=== PATIENT | female | born 1970 | race Caucasian/White ===

== ENCOUNTER 2017-05-05 12:57 | Emergency (ER) | payer MEDICARE, SELFPAY ==
[2017-05-05 12:58] VITALS: BP 120/83; PULSE 104; RESP 16; TEMP 37.3; O2SAT 97; BMI 26.7
--- NOTE | 2017-05-05 13:06 | CT_ITS ---
STUDY: CT BRAIN WITHOUT CONTRAST REASON FOR EXAM: Female, 46 years old. History of seizure. RADIATION DOSAGE (If Supplied By Facility): CTDIvol = ( 44.99 ) mGy, DLP = ( 779.24 ) mGycm TECHNIQUE: Transaxial CT imaging of the brain was performed without administration of intravenous contrast material. Individualized dose optimization techniques were used for this CT. COMPARISON: None. FINDINGS: Normal soft tissue structures. Normal calvarium. Normal size ventricles and extra-axial spaces for the patient's age. Normal white matter tracts of the cerebral hemispheres. Normal basal ganglia and thalami. Normal brainstem. Normal cerebellum. There is no intracranial hemorrhage. There are no findings of an acute ischemic infarction. Partial opacification of the ethmoid sinuses bilaterally. CT/Brain/Head without Contrast IMPRESSION: Normal unenhanced CT scan of the brain. Partial opacification of the ethmoid sinuses bilaterally. Electronically Signed: Marcelo Montez MD at 14:50 EST Tel [phone], Service support ,
--- NOTE | 2017-05-05 13:06 | EKG12_ITS ---
Test Reason : SEIZURE Blood Pressure : / mmHG Vent. Rate : 107 BPM Atrial Rate : 107 BPM P-R Int : 150 ms QRS Dur : 080 ms QT Int : 360 ms P-R-T Axes : 039 051 038 degrees QTc Int : 480 ms Sinus tachycardia Low voltage QRS Borderline ECG Confirmed by ASHWIN COLON MD ([id number]), video tape editor REÉN MCCORD ([id number] on 05/08/2017 2:52:52 PM Referred By: VINITA Confirmed By:ASHWIN COLON MD
--- NOTE | 2017-05-05 13:09 | ED.RN ---
PT ARRIVES TO ED CONFUSED AND DISORIENTED. CHART COMPLETE THAT COULD BE DONE WITHOUT PT HISTORIAN.
--- NOTE | 2017-05-05 13:15 | RAD_ITS ---
STUDY: X-RAY CHEST REASON FOR EXAM: Female, 46 years old. Shortness of breath/dyspnea. TECHNIQUE: Single AP portable view of the chest. COMPARISON: None. FINDINGS: Mild elevation of the right hemidiaphragm. There is no demonstrated pleural abnormality. Normal size heart. Normal mediastinum and sukhi. Normal visualized pulmonary arteries. Normal visualized aortic arch and descending thoracic aorta. Normal visualized thoracic spine. Normal visualized ribs, clavicles, and shoulders. There is no demonstrated abnormality of the visualized soft tissue structures of the upper abdomen. RAD/Chest 1 View (Portable) IMPRESSION: Normal x-ray examination of the chest. Electronically Signed: Marcelo Montez MD at 13:37 EST Tel [phone], Service support ,
--- NOTE | 2017-05-05 13:27 | NURSING ---
NO OLD EKGS
--- NOTE | 2017-05-05 13:43 | ED.RN ---
Sudha [facility] [phone]. Member of the [employer]az[employer] that is caring for the patient.
--- NOTE | 2017-05-05 13:49 | ED.VISSUMM ---
- ER Visit Summary Date of Service: 05/05/17 Chief Complaint: [] Seizure while playing in scientology History of Present Illness: The patient is a 46 F [] the patient is currently staying in a scientology related to homelessness prior history for polysubstance abuse and alcohol abuse, history of seizure disorder and anxiety, on Klonopin for those conditions, she indicates she has a reaction to seizure medication such as Depakote and Keppra so her seizures are managed using Klonopin which she gets a physician in [place] she has been in the [place] area since December and this physician's office apparently sensory to the prescription or the medication Her usual state of normal health until she bent down to pray as she did those next her noticed she began having generalized clonic tonic clonic activity lasted for 3 minutes she is brought to the emergency department Has not been ill in any way she has had no head trauma no fever no cough no chest or abdominal pain right now she is awake alert answering questions complaining of generalized fatigue She is not abusing any medications or drugs she has no specific complaints and she states she has been taking the Klonopin has not missed any doses Physical Examination: [] She is awake looking about she is oriented to herself the [facility] her nose and throat are unremarkable her neck is supple her lungs are clear heart tones unremarkable abdomen soft nontender she is moving all 4 complains of generalized fatigue Test Results: [] Emergency Department Course and Treatment: [] Had difficulty obtaining IV access related to prior history of IV drug abuse will try to obtain screening labs head CT and observe her, the scientology members who she is living with state absolutely definitively that she was not ill she has not been using drugs and this all started suddenly today And her friends report that in fact for the last 2 days she has had almost no sleep and this certainly could have contributed to her seizure active sleep apparently is related to general anxiety concern about her status We could not obtain IV access, the patient refused a femoral stick screening CT showed nothing acute questionable ethmoid sinusitis, chest x-ray unremarkable she is awake and alert she is walking around the emergency room to the bathroom she feels well for discharged, has no complaints understands need to follow-up as she may require other definitive management for her seizure condition, she indicates she has her Klonopin at home with her she will continue that for seizures in addition she will be referred to Dr. Kearns of neurology and return for change in symptoms not Prone to sinusitis she reports she is occasionally blowing her nose given that complaint in the CT finding we will start her on amoxicillin, Mucinex, Flonase inhaler and she will follow-up for all the above Treatment Plan: [] Disposition: [] Home stable Impression: [] seizure disorder, seizure, possible sinusitis This note was generated with [employer] dictation software. It may contain incorrect words, spelling, and punctuation that were not noted in review of the chart prior to signing ED Disposition - Plan for ED Patient: Chief Complaint: Seizure Instructions: ED Seizure Recurrent Referrals: Ambrose Kearns MD [STAFF PHYSICIAN] - [facility] Doctor,Out of [NON-STAFF] - [facility] [NON-STAFF] -
--- NOTE | 2017-05-05 13:52 | ED.DCSUM_ITS ---
- ER Visit Summary Date of Service: 05/05/17 Chief Complaint: [] Seizure while playing in latter-day History of Present Illness: The patient is a 46 F [] the patient is currently staying in a latter-day related to homelessness prior history for polysubstance abuse and alcohol abuse, history of seizure disorder and anxiety, on Klonopin for those conditions, she indicates she has a reaction to seizure medication such as Depakote and Keppra so her seizures are managed using Klonopin which she gets a physician in [place] she has been in the [place] area since December and this physician's office apparently sensory to the prescription or the medication Her usual state of normal health until she bent down to pray as she did those next her noticed she began having generalized clonic tonic clonic activity lasted for 3 minutes she is brought to the emergency department Has not been ill in any way she has had no head trauma no fever no cough no chest or abdominal pain right now she is awake alert answering questions complaining of generalized fatigue She is not abusing any medications or drugs she has no specific complaints and she states she has been taking the Klonopin has not missed any doses Physical Examination: [] She is awake looking about she is oriented to herself the [facility] her nose and throat are unremarkable her neck is supple her lungs are clear heart tones unremarkable abdomen soft nontender she is moving all 4 complains of generalized fatigue Test Results: [] Emergency Department Course and Treatment: [] Had difficulty obtaining IV access related to prior history of IV drug abuse will try to obtain screening labs head CT and observe her, the latter-day members who she is living with state absolutely definitively that she was not ill she has not been using drugs and this all started suddenly today And her friends report that in fact for the last 2 days she has had almost no sleep and this certainly could have contributed to her seizure active sleep apparently is related to general anxiety concern about her status We could not obtain IV access, the patient refused a femoral stick screening CT showed nothing acute questionable ethmoid sinusitis, chest x-ray unremarkable she is awake and alert she is walking around the emergency room to the bathroom she feels well for discharged, has no complaints understands need to follow-up as she may require other definitive management for her seizure condition, she indicates she has her Klonopin at home with her she will continue that for seizures in addition she will be referred to Dr. Kearns of neurology and return for change in symptoms not Prone to sinusitis she reports she is occasionally blowing her nose given that complaint in the CT finding we will start her on amoxicillin, Mucinex, Flonase inhaler and she will follow-up for all the above Treatment Plan: [] Disposition: [] Home stable Impression: [] seizure disorder, seizure, possible sinusitis This note was generated with [employer] dictation software. It may contain incorrect words, spelling, and punctuation that were not noted in review of the chart prior to signing ED Disposition - Plan for ED Patient: Chief Complaint: Seizure Instructions: ED Seizure Recurrent Referrals: Ambrose Kearns MD [STAFF PHYSICIAN] - [facility] Doctor,Out of [NON-STAFF] - [facility] K[facility] [NON-STAFF] -
--- NOTE | 2017-05-05 14:39 | NURSING ---
PER LAB, NEED ANOTHER CBC, TOO SHORT
[2017-05-05 15:02] LABS: Mucous, Urine 0 SEEN /hpf (<or=2+); Red Blood Cells-Urine 0 SEEN /hpf (0-5); White Blood Cells 0 SEEN /hpf (0-5)
[2017-05-05 15:06] LABS: Color, Urine Yellow (Yellow); Glucose, Dipstick Normal (Normal); Ketone-Dipstick 15 mg/dl (Negative); Leukocyte Esterase-Dipstick Negative /ul (Negative); Nitrite-Dipstick Negative (Negative); Occult Blood-Urine Negative /ul (Negative); Protein-Dipstick Negative (Negative); Specific Gravity, Urine 1.015 (1.002-1.030); Urine Bilirubin Dipstick Negative (Negative); Urine Clarity Clear (Clear); Urine Urobilinogen Normal (Normal)
[2017-05-05 15:13] LABS: Bacteria RARE /hpf (None Seen); Squamous Epithelial Cells - UA 0-5 SEEN /hpf (5-10)
[2017-05-05 15:29] VITALS: PULSE 102; RESP 16; O2SAT 98
[2017-05-05] MEDS: LORazepam 1 MG Tablet PO (15:58)
--- NOTE | 2017-05-05 15:58 | DCINST.ED_ITS ---
ED Disposition - Plan for ED Patient: Chief Complaint: Seizure Instructions: ED Seizure Recurrent Referrals: [facility] Doctor,Out of [NON-STAFF] - [facility]Jaci Kraft [NON-STAFF] - Ambrose Kearns MD [STAFF PHYSICIAN] -
--- NOTE | 2017-05-05 16:06 | ED.DEP ---
ED Disposition - Plan for ED Patient: Chief Complaint: Seizure Instructions: ED Seizure Recurrent Prescriptions: Azithromycin [Zithromax Z-August] 250 mg PO UD #1 box Fluticasone Propionate [Flonase Allergy Relief] 9.9 ml NS BID #1 spray.susp Guaifenesin [Mucinex] 1,200 mg PO BID #14 tbmp.12hr Referrals: Ambrose Kearns MD [STAFF PHYSICIAN] - [facility] Doctor,Out of [NON-STAFF] - [facility]i K[facility] [NON-STAFF] -
--- NOTE | 2017-05-05 16:11 | DCINST.ED_ITS ---
ED Disposition - Plan for ED Patient: Chief Complaint: Seizure Instructions: ED Seizure Recurrent Prescriptions: Azithromycin [Zithromax Z-August] 250 mg PO UD #1 box Fluticasone Propionate [Flonase Allergy Relief] 9.9 ml NS BID #1 spray.susp Guaifenesin [Mucinex] 1,200 mg PO BID #14 tbmp.12hr Referrals: Ambrose Kearns MD [STAFF PHYSICIAN] - [facility] Doctor,Out of [NON-STAFF] - [facility]Jaci Kraft [NON-STAFF] -
--- NOTE | 2017-05-05 16:13 | DCINST.ED_ITS ---
ED Disposition - Plan for ED Patient: Chief Complaint: Seizure Instructions: ED Seizure Recurrent, ED Sinusitis Abx Tx Prescriptions: Azithromycin [Zithromax Z-August] 250 mg PO UD #1 box Fluticasone Propionate [Flonase Allergy Relief] 9.9 ml NS BID #1 spray.susp Guaifenesin [Mucinex] 1,200 mg PO BID #14 tbmp.12hr Referrals: Ambrose Kearns MD [STAFF PHYSICIAN] - [facility] Doctor,Out of [NON-STAFF] - [facility]Jaci Kraft [NON-STAFF] -
--- NOTE | 2017-05-06 11:07 | ED.DEP ---
ED Disposition - Plan for ED Patient: Disposition: Home or Assisted Living Chief Complaint: Seizure Instructions: ED Sinusitis Abx Tx, ED Seizure Recurrent Prescriptions: Azithromycin [Zithromax] 250 mg PO DAILY #6 tab Fluticasone Propionate [Flonase Allergy Relief] 9.9 ml NS BID #1 spray.susp Guaifenesin [Mucinex] 1,200 mg PO BID #14 tbmp.12hr Referrals: Ambrose Kearns MD [STAFF PHYSICIAN] - [facility] Doctor,Out of [NON-STAFF] - [facility] K[facility] [NON-STAFF] -
--- NOTE | 2017-05-06 11:10 | DCINST.ED_ITS ---
ED Disposition - Plan for ED Patient: Disposition: Home or Assisted Living Chief Complaint: Seizure Instructions: ED Sinusitis Abx Tx, ED Seizure Recurrent Prescriptions: Azithromycin [Zithromax] 250 mg PO DAILY #6 tab Fluticasone Propionate [Flonase Allergy Relief] 9.9 ml NS BID #1 spray.susp Guaifenesin [Mucinex] 1,200 mg PO BID #14 tbmp.12hr Referrals: Ambrose Kearns MD [STAFF PHYSICIAN] - [facility] Doctor,Out of [NON-STAFF] - [facility] K[facility] [NON-STAFF] -
== END 2017-05-05 16:23 | disposition home or self-care (01) ==
PROVIDERS: Emergency Provider Emergency Medicine
DX: G40.909 Epilepsy, unspecified, not intractable, without status epilepticus (principal); Z59.0 Homelessness; F41.9 Anxiety disorder, unspecified
CPT/HCPCS: 70450; 71045; 81001; 93005; 99284; J7030; A4216

== ENCOUNTER 2017-05-06 14:15 | Emergency (ER) | payer MEDICARE, MEDICAID, SELFPAY ==
[2017-05-06 14:16] VITALS: BP 139/83; PULSE 75; RESP 16; TEMP 36.3; O2SAT 100; BMI 26.9
--- NOTE | 2017-05-06 15:05 | RAD_ITS ---
STUDY: X-RAY CHEST REASON FOR EXAM: Female, 46 years old. History of seizures. TECHNIQUE: Single AP portable view of the chest. COMPARISON: None. FINDINGS: EKG electrodes are seen. Mild increased linear markings at the left lung base suggestive of likely atelectasis and/or possible scarring. There is no demonstrated pleural abnormality. Normal size heart. Normal mediastinum and sukhi. Normal visualized pulmonary arteries. Normal visualized aortic arch and descending thoracic aorta. Normal visualized thoracic spine. Normal visualized ribs, clavicles, and shoulders. There is no demonstrated abnormality of the visualized soft tissue structures of the upper abdomen. RAD/Chest 1 View (Portable) IMPRESSION: Mild increased linear markings at the left lung base suggestive of left basilar atelectasis and/or scarring. Electronically Signed: Marcelo Montez MD at 15:33 EST Tel [phone], Service support ,
--- NOTE | 2017-05-06 15:05 | EKG12_ITS ---
Test Reason : SEIZURES Blood Pressure : / mmHG Vent. Rate : 072 BPM Atrial Rate : 072 BPM P-R Int : 148 ms QRS Dur : 084 ms QT Int : 388 ms P-R-T Axes : 039 007 028 degrees QTc Int : 424 ms Normal sinus rhythm Normal ECG Confirmed by ASHWIN COLON MD ([id number]), editor index RENÉ MCCORD ([id number]) on 05/11/2017 2:12:23 PM Referred By: ELVA Confirmed By:ASHWIN COLON MD
[2017-05-06 15:25] LABS: Absolute Lymphocyte Count 2.04 X10^3/ul (0.83-4.51); Absolute Neutrophil Count 5.5 X10^3/uL (2.0-7.7); Basophil# 0.04 X10^3/uL; Basophil% 0.5 % (0-1); Eosinophil# 0.21 X10^3/uL; Eosinophils% 2.5 % (0-5); Hematocrit 40.3 % (37-47); Hemoglobin 13.3 g/dl (12.0-15.0); Lymphocyte # 2.04 X10^3/ul (4.0); Lymphocyte % 24.4 % (19-41); Mean Corpuscular Hgb 31.1 pg (27.0-32.0); Mean Corpuscular Volume 94.4 fL (81-99); Mean Platelet Vol. 9.6 fl (6.2-12.0); Monocyte# 0.58 X10^3/uL; Monocyte% 6.9 % (0-10); Neutrophil # 5.46 X10^3/uL (2.7-7.7); Neutrophil % 65.5 % (47-70); Platelet Count 446 K/mm3 (150-450); RBC Distribution Width CV 12.6 % (11.6-14.6); RBC Distribution Width SD 42.4 fl (35.1-43.9); Red Blood Count 4.27 M/mm3 (4.2-5.4); White Blood Count 8.4 K/mm3 (4.4-11.0)
[2017-05-06 15:30] LABS: AST(SGOT) 15 U/L (15-37); Alanine Aminotransfer ALT/SGPT 20 U/L (13-56); Albumin, Serum 3.8 g/dL (3.2-5.0); Alkaline Phosphatase 93 U/L (45-117); Anion Gap 7 (5-15); BUN 12 mg/dL (7-18); BUN/Creat Ratio 17.8 RATIO (10-20); Calcium,Total 8.9 mg/dL (8.5-10.1); Chloride 108 mmol/L (98-107); Creatinine, Serum 0.67 mg/dL (0.55-1.02); EST Glomerular Filtration Rate 100 mL/min (>60); Est Glom Filt Rate - Afr Amer 121 mL/min (>60); Estimated Creatinine Clearance 91.56 ml/min; Globulin 3.8 g/dL (2.2-4.2); Glucose 95 mg/dL (74-106); Potassium 3.7 mmol/L (3.5-5.1); Protein, Total 7.6 g/dL (6.4-8.2); Sodium Level 142 mmol/L (136-145)
--- NOTE | 2017-05-06 15:32 | MRI_ITS ---
MR Spine Lumbar W/O Contrast INDICATION: seizure at 10 am unable to feel legs since, h/o conversion seizures COMPARISON: None TECHNIQUE: Multiplanar multisequence MRI examination of the lumbar spine without contrast FINDINGS: There is normal lumbar lordosis and no significant scoliosis. Height of the vertebral bodies is preserved. A Schmorl's node is present in the superior endplate of T11 without evidence of bone marrow edema. The bone marrow signal is otherwise unremarkable. The conus is located at the L1 level and is morphologically unremarkable. There is normal distribution of the nerve roots of the cauda equina. Height of the intervertebral disc spaces is preserved. There is mild loss of T2 signal of the L4-5 disc suggestive of dehydration/early degeneration. Mild facet arthritic changes are present at L3-4 and L4-5. There is no evidence of significant disc bulging, spinal canal or neuroforaminal stenosis at any level. MRI/Spine Lumbar (Routine) IMPRESSION: No acute findings at the lumbar spine. Minimal early degenerative changes. No evidence of spinal canal or neuroforaminal narrowing. at 1954 Reported and signed by: Ara Beth MD Electronically Signed: Ara Beth MD at 18:53 EST Tel , Service support ,
[2017-05-06 15:35] LABS: POSITIVE COUNT NO; POSITIVE DIFFERENTIAL NO; POSITIVE MORPHOLOGY NO
--- NOTE | 2017-05-06 16:28 | ED.RN ---
1420 RN CALLED INTO ROOM FOR PATIENT SEIZING 1421 PT IS GRABBING ON TO THE SEIZURE PAD, RED FACE, OXYGEN APPLIED, SUCTION SET UP 1426 PT HR RETURNS TO 80-90'S FROM 120'S. VITAL SIGNS STABLE. NO MEDICATION GIVEN PER DR. LUCAS
[2017-05-06 16:36] VITALS: BP 156/89; PULSE 85; RESP 18; O2SAT 98
[2017-05-06 17:38] VITALS: BP 148/85; PULSE 85; RESP 18; O2SAT 100
[2017-05-06 17:43] LABS: White Blood Cells 0 SEEN /hpf (0-5)
[2017-05-06 17:44] LABS: Color, Urine Yellow (Yellow); Glucose, Dipstick Normal (Normal); Ketone-Dipstick 5 mg/dl (Negative); Leukocyte Esterase-Dipstick Negative /ul (Negative); Nitrite-Dipstick Negative (Negative); Occult Blood-Urine 10 /ul (Negative); Protein-Dipstick 15 mg/dl (Negative); Specific Gravity, Urine 1.015 (1.002-1.030); Urine Bilirubin Dipstick Negative (Negative); Urine Clarity Sl. Cloudy (Clear); Urine Urobilinogen 1 mg/dl (Normal); Urine pH 6.5 (5.0 - 8.0)
[2017-05-06 18:33] LABS: Bacteria 1+ /hpf (None Seen); Mucous, Urine 3+ /hpf (<or=2+); Red Blood Cells-Urine 0-5 SEEN /hpf (0-5); Squamous Epithelial Cells - UA 0-5 SEEN /hpf (5-10)
[2017-05-06 18:44] LABS: Amphetamine Urine VISTA NEGATIVE (<1000 ng/mL); Barbiturate Urine VISTA NEGATIVE (< 200 ng/mL); Benzodiazepine Urine VISTA POSITIVE (< 200 ng/mL); Cocaine Urine VISTA NEGATIVE (< 300 ng/mL); Ecstacy Urine VISTA NEGATIVE (< 500 ng/mL); Methadone Urine VISTA NEGATIVE (< 300 ng/mL); PCP Urine VISTA NEGATIVE (< 25 ng/mL); THC Urine VISTA NEGATIVE (< 50 ng/mL); Vista UDS pH Range 6
[2017-05-06 19:32] VITALS: PULSE 80; RESP 18; O2SAT 99
[2017-05-06 20:00] VITALS: BP 142/88; PULSE 87; RESP 12; O2SAT 99
--- NOTE | 2017-05-06 20:22 | ED.VISSUMM ---
- ER Visit Summary Date of Service: 05/06/17 Chief Complaint: Seizures History of Present Illness: The patient is a 46 F with a history of a conversion disorder. Denies any other medical history however on prior records she was noted to have a history of drug abuse and schizophrenia. Friend with her states that she has had having increased seizures since yesterday. She states she slumped to the floor and was shaking for 5 minutes yesterday and this occurred again twice today but for shorter duration. She was seen in the emergency department yesterday and had a CT which was normal. She reports increased stress over the last couple of days which triggered this. She is not on antiepileptics and only on benzodiazepines for anxiety. No recent medical illness no nausea vomiting chest pain or shortness of breath. She states that she has been unable to move her legs since about 1030 this morning and it was worse after she had a reported seizure. She reports she was incontinent of stool earlier today. Physical Examination: Afebrile vitals are normal Moist mucous membranes Heart regular rate and rhythm Lungs are clear Abdomen soft and nontender Patient has normal strength and sensation of the upper extremities there is no ataxia of the upper extremities the patient refuses to move her lower extremities however she was noted to shifted these in the bed. Rectal exam shows normal tone Test Results: EKG shows normal sinus rhythm at a rate of 72. Chest x-ray shows some scarring at the left lung but no focal infiltrate. CBC BMP hepatic function urinalysis all normal. Alcohol negative. Drugs of abuse positive for benzodiazepines. MRI of the lumbar spine shows no acute findings. Emergency Department Course and Treatment: Patient episode here where she clenched look to the left and was clenching the pads on the bed rail. I went to the room and asked her to take a few deep breaths and set her arm down at her side. She was able to do this and activity stopped. This is not consistent with a true seizure. Additionally given reported bilateral lower extremity paralysis and MRI of the lumbar spine was obtained to rule out spinal pathology and this is normal. Bilateral sudden onset lower extremity paralysis does not fit with a brain pathology. I suspect that this is related to her history of a conversion disorder and is due to psychiatric pathology. I recommend that we have crisis evaluate the patient here. The patient refused psychiatric evaluation and requested to leave AGAINST MEDICAL ADVICE. Her friends at bedside also do not want her to go to a psychiatric facility and vocalized that they felt that she should go back home and that they would help her get there. I did advise the patient that she is welcome to return for further evaluation at any point. She vocalized understanding and signed out AGAINST MEDICAL ADVICE. Treatment Plan: [] Disposition: Left AGAINST MEDICAL ADVICE Impression: Conversion disorder This note was generated with [employer] dictation software. It may contain incorrect words, spelling, and punctuation that were not noted in review of the chart prior to signing ED Disposition - Plan for ED Patient: Chief Complaint: Seizure Referrals: Care Physician,No Primary [Primary Care Provider] -
--- NOTE | 2017-05-06 20:36 | ED.DEP ---
ED Disposition - Plan for ED Patient: Chief Complaint: Seizure Instructions: ED Conversion Disdr Conversion Reac Referrals: Care Physician,No Primary [Primary Care Provider] -
--- NOTE | 2017-05-06 20:45 | ED.RN ---
DR. LUCAS AT BEDSIDE DISCUSSING WITH PT IN GREAT DETAIL THE RISK OF LEAVING AMA, INCLUDING RISK FOR FALLS, INJURY, AND . PT STATES THAT SHE WILL MAKE DO AT HOME. PT STILL WISHES TO LEAVE AMA AND REFUSES FURTHER WORKUP OR EVALUATION.
[2017-05-06 20:47] VITALS: BP 142/88; PULSE 83; RESP 18; O2SAT 99
--- NOTE | 2017-05-06 20:49 | ED.RN ---
FAMILY AND FRIENDS AT BEDSIDE TO WITNESS PT AND DR. LUCAS'S DISCUSSION OF LEAVING AMA.
== END 2017-05-06 20:49 | disposition left against medical advice (07) ==
PROVIDERS: Emergency Provider Emergency Medicine
DX: F44.9 Dissociative and conversion disorder, unspecified (principal); K59.00 Constipation, unspecified; F19.10 Other psychoactive substance abuse, uncomplicated
CPT/HCPCS: 71045; 72148; 80053; 80307; 80320; 81001; 85025; 93005; 99285; G0480

== ENCOUNTER 2017-05-23 16:21 | Emergency (ER) | payer MEDICARE, SELFPAY ==
[2017-05-23 16:23] VITALS: BP 110/80; PULSE 86; RESP 16; TEMP 36.2; BMI 27.1
--- NOTE | 2017-05-23 16:50 | RAD_ITS ---
STUDY: X-RAY - RIGHT KNEE REASON FOR EXAM: Female, 47 years old. Follow. Pain. TECHNIQUE: 4 view(s) of the knee. COMPARISON: None. FINDINGS: Normal visualized distal femur. Normal visualized proximal tibia and fibula. Normal proximal tibiofibular articulation. Normal medial femorotibial compartment. Normal lateral femorotibial compartment. There is slight lateral subluxation and tilt of the patella. There is a superior patellar spur. There is ossification of the medial collateral ligament compatible with remote trauma. RAD/Knee 4 or More Views IMPRESSION: Osteoarthritic and remote posttraumatic changes with no acute pathology. Electronically Signed: Tarun Hopson MD at 18:01 EDT , Service support ,
--- NOTE | 2017-05-23 16:50 | RAD_ITS ---
STUDY: X-RAY - RIGHT FOOT CLINICAL: Female, 47 years old. Fall. Pain. TECHNIQUE: 3 view(s) of the foot. COMPARISON: None. FINDINGS: Normal talus, calcaneus, and tarsal bones. Normal visualized subtalar, talonavicular, calcaneocuboid, tarsal and tarsometatarsal articulations. Normal metatarsi. Normal metatarsophalangeal joint of the great toe. Normal tibial and fibular sesamoid bones. Normal interphalangeal joint of the great toe. Normal phalanges of the great toe. Normal second through fifth metatarsophalangeal joints. Normal interphalangeal joints and phalanges of the lesser toes. The soft tissue structures are unremarkable. RAD/Foot min 3 Views IMPRESSION: No acute abnormality of the right foot. Electronically Signed: Tarun Hopson MD at 17:59 EDT , Service support ,
--- NOTE | 2017-05-23 16:50 | RAD_ITS ---
STUDY: X-RAY - RIGHT TIBIA AND FIBULA REASON FOR EXAM: Female, 47 years old. Follow. Pain. TECHNIQUE: 2 view(s) of the tibia and fibula were obtained. COMPARISON: None. FINDINGS: Normal visualized tibia. Normal visualized fibula. There is ossification of the distal medial collateral ligament from remote trauma. RAD/Tibia & Fibula 2 Views IMPRESSION: No acute abnormality of the right tibia/fibula. Electronically Signed: Tarun Hopson MD at 18:01 EDT , Service support ,
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
--- NOTE | 2017-05-23 17:00 | RAD_ITS ---
STUDY: X-RAY - RIGHT ANKLE REASON FOR EXAM: Female, 47 years old. Fall. Pain. TECHNIQUE: 3 view(s) of the ankle. COMPARISON: None. FINDINGS: Normal visualized distal tibia and fibula. Normal medial and lateral malleoli. Normal tibiotalar articulation and ankle mortise. Normal visualized talus and calcaneus. The visualized subtalar, talonavicular, calcaneocuboid and tarsal articulations are normal. The soft tissue structures are unremarkable. RAD/Ankle min 3 Views IMPRESSION: No acute abnormality of the right ankle. Electronically Signed: Tarun Hopson MD at 17:59 EDT , Service support ,
[2017-05-23 18:18] VITALS: BP 118/76; PULSE 78; RESP 16; O2SAT 100
== END 2017-05-23 18:19 | disposition home or self-care (01) ==
PROVIDERS: Emergency Provider Emergency Medicine
DX: S80.11XA Contusion of right lower leg, initial encounter (principal); W52.XXXA Crushed, pushed or stepped on by crowd or human stampede, initial encounter; Y93.89 Activity, other specified; Y92.89 Other specified places as the place of occurrence of the external cause; Y99.8 Other external cause status
CPT/HCPCS: 73564; 73590; 73610; 73630; 99282

== ENCOUNTER → 2017-06-19 15:04 | Outpatient (CLI) | payer MEDICARE, MEDICAID, SELFPAY ==
[2017-06-19 18:27] LABS: Amphetamine Urine VISTA NEGATIVE (<1000 ng/mL); Barbiturate Urine VISTA NEGATIVE (< 200 ng/mL); Benzodiazepine Urine VISTA NEGATIVE (< 200 ng/mL); Cocaine Urine VISTA NEGATIVE (< 300 ng/mL); Ecstacy Urine VISTA NEGATIVE (< 500 ng/mL); Methadone Urine VISTA NEGATIVE (< 300 ng/mL); PCP Urine VISTA NEGATIVE (< 25 ng/mL); THC Urine VISTA NEGATIVE (< 50 ng/mL); Vista UDS pH Range 5
== END ==
PROVIDERS: Family Provider Family Medicine; PCP Family Medicine; Visit Provider Family Medicine
DX: F41.9 Anxiety disorder, unspecified (principal); F32.9 Major depressive disorder, single episode, unspecified; Z79.899 Other long term (current) drug therapy
CPT/HCPCS: 80307

== ENCOUNTER → 2017-08-04 09:20 | Outpatient (CLI) | payer MEDICARE, MEDICAID, SELFPAY ==
--- NOTE | 2017-08-04 09:20 | DT_ITS ---
This patient was seen during an EMR downtime August 03, 2017 - August 10, 2017. This patient may have a combination of paper and electronic documentation or all paper documentation. All documentation is viewable within the e-chart portion of [facility] for each patient visit.
[2017-08-09 09:41] LABS: Amphetamine Urine VISTA NEGATIVE (<1000 ng/mL); Barbiturate Urine VISTA NEGATIVE (< 200 ng/mL); Benzodiazepine Urine VISTA POSITIVE (< 200 ng/mL); Cocaine Urine VISTA NEGATIVE (< 300 ng/mL); Ecstacy Urine VISTA NEGATIVE (< 500 ng/mL); Methadone Urine VISTA NEGATIVE (< 300 ng/mL); PCP Urine VISTA NEGATIVE (< 25 ng/mL); THC Urine VISTA NEGATIVE (< 50 ng/mL); Vista UDS pH Range 5
== END ==
PROVIDERS: Family Provider Family Medicine; PCP Family Medicine; Visit Provider Family Medicine
DX: F44.5 Conversion disorder with seizures or convulsions (principal)
CPT/HCPCS: 80307

== ENCOUNTER 2017-08-09 08:05 | Emergency (ER) | payer OTHER, MEDICARE, MEDICAID, SELFPAY ==
--- NOTE | 2017-08-09 08:05 | DT_ITS ---
This patient was seen during an EMR downtime August 03, 2017 - August 10, 2017. This patient may have a combination of paper and electronic documentation or all paper documentation. All documentation is viewable within the e-chart portion of [facility] for each patient visit.
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
== END 2017-08-09 09:30 | disposition left against medical advice (07) ==
PROVIDERS: Emergency Provider Emergency Medicine; Family Provider Family Medicine; PCP Family Medicine
DX: S09.90XA Unspecified injury of head, initial encounter (principal); V89.2XXA Person injured in unspecified motor-vehicle accident, traffic, initial encounter; Y93.9 Activity, unspecified; Y92.9 Unspecified place or not applicable; G40.909 Epilepsy, unspecified, not intractable, without status epilepticus; M54.2 Cervicalgia; Z53.21 Procedure and treatment not carried out due to patient leaving prior to being seen by health care provider; K21.9 Gastro-esophageal reflux disease without esophagitis; F41.9 Anxiety disorder, unspecified; F32.9 Major depressive disorder, single episode, unspecified; Z79.899 Other long term (current) drug therapy; Z87.891 Personal history of nicotine dependence
CPT/HCPCS: 70450; 72125; 72128; 96372; 99283

== ENCOUNTER 2017-10-01 01:16 | Emergency (ER) | payer MEDICARE, MEDICAID, SELFPAY ==
[2017-10-01 01:17] VITALS: BP 152/85; PULSE 68; RESP 20; TEMP 36.4; O2SAT 100; BMI 24.0
--- NOTE | 2017-10-01 01:35 | CT_ITS ---
STUDY: CT CERVICAL SPINE WITHOUT CONTRAST REASON FOR EXAM: Female, 47 years old. Neck pain status post seizure related fall RADIATION DOSAGE (If Supplied By Facility): CTDIvol = ( 17.44 ) mGy, DLP = ( 364.83 ) mGycm TECHNIQUE: High resolution transaxial imaging was performed without contrast material. Sagittal and coronal images were reconstructed. Individualized dose optimization techniques were used for this CT. COMPARISON: None FINDINGS: Normal craniovertebral junction. There are degenerative changes of the anterior atlantoaxial articulation. Normal odontoid process. Normal cervical lordosis. No vertebral body or posterior element fracture. Facet joints are in normal alignment with mild degenerative change. There is mild loss of height with endplate change and spur formation noted within the intervertebral disc spaces at C5-C6 and C6-C7. There is mild nonuniform joint space narrowing of the uncovertebral joints from C5 through C7. C2-3: Normal endplates. Normal disc height and morphology. Normal central canal and intervertebral neuroforamina. C3-4: Normal endplates. Normal disc height and morphology. Normal central canal and intervertebral neuroforamina. C4-5: Normal endplates. Normal disc height and morphology. Normal central canal and intervertebral neuroforamina. C5-6: Mild to moderate right and mild left neural foraminal canal narrowing. C6-7: Mild to moderate right and mild left neural foraminal canal narrowing. C7-T1: Normal endplates. Normal disc height and morphology. Normal central canal and intervertebral neuroforamina. Normal visualized soft tissue structures. CT/Spine Cervical without Contras IMPRESSION: 1. No evidence of acute injury to the cervical spine. 2. Mild to moderate multilevel degenerative disc and joint disease of the lower cervical spine. Electronically Signed: Feng Lozano MD at 2:45 EDT Tel , Service support ,
--- NOTE | 2017-10-01 01:35 | CT_ITS ---
STUDY: CT BRAIN WITHOUT CONTRAST REASON FOR EXAM: Female, 47 years old. Headache status post seizure related fall. RADIATION DOSAGE (If Supplied By Facility): CTDIvol = ( 44.99 ) mGy, DLP = ( 779.24 ) mGycm TECHNIQUE: Transaxial CT imaging of the brain was performed without administration of intravenous contrast material. Individualized dose optimization techniques were used for this CT. COMPARISON: None. FINDINGS: Mild soft tissue swelling of the frontal scalp. No underlying fracture. Normal size ventricles and extra-axial spaces for the patient's age. Normal white matter tracts of the cerebral hemispheres. Normal basal ganglia and thalami. Normal brainstem. Normal cerebellum. There is no intracranial hemorrhage. There are no findings of an acute ischemic infarction. Normal visualized paranasal sinuses. CT/Brain/Head without Contrast IMPRESSION: Frontal scalp soft tissue swelling with no underlying fracture no evidence of an acute intracranial abnormality. Electronically Signed: Feng Lozano MD at 2:40 EDT Tel , Service support ,
--- NOTE | 2017-10-01 01:35 | CT_ITS ---
STUDY: CT FACIAL BONES WITHOUT CONTRAST REASON FOR EXAM: Female, 47 years old. Facial pain status post seizure related fall RADIATION DOSAGE (If Supplied By Facility): CTDIvol = ( 29.38 ) mGy, DLP = ( 488.69 ) mGycm TECHNIQUE: The patient was scanned in a multi detector CT scanner. Sagittal and coronal images were reconstructed. Individualized dose optimization techniques were used for this CT. COMPARISON: None. FINDINGS: Visualized portions of the brain are unremarkable. Visualized frontal scalp and soft tissues of the cheeks are unremarkable. Orbital globes and retro-orbital soft tissues are normal. Bowl Attendant spaces and parapharyngeal fat planes are preserved. Soft palate and retropharyngeal soft tissues are normal. Salivary glands are normal. No significant lymphadenopathy. No frontal bone or nasal bone fracture. Orbital arroyo and maxillary sinus arroyo are intact. Zygomatic arches and pterygoid plates are normal. Temporomandibular joints are normal alignment. No mandibular fracture. Normal visualized paranasal sinuses. Mastoid air cells are clear. CT/Sinus/Facial Bone IMPRESSION: No acute maxillofacial injury. Electronically Signed: Feng Lozano MD at 2:42 EDT Tel , Service support ,
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
[2017-10-01 02:21] VITALS: BP 123/86; PULSE 76; RESP 16; O2SAT 99
--- NOTE | 2017-10-01 02:49 | ED.VISSUMM ---
- ER Visit Summary Date of Service: 10/01/17 Chief Complaint: Seizure History of Present Illness: The patient is a 47 F who presents with friends. They heard her fall. She had seizure activity and she sustained a laceration to her forehead. Bleeding stopped with direct pressure. No other injuries or complaints. She has been confused since the episode. This is typical of her seizures. She is compliant with her medication. Physical Examination: Hypertensive but otherwise vitals unremarkable. Patient is alert, but slow to respond to questions. She has a 5 cm transverse forehead laceration which is oozing bright red blood. The remainder of her HEENT exam is atraumatic. Neck is nontender. Chest nontender. Heart regular. Lungs clear. Abdomen soft. Back nontender. Extremities atraumatic, nontender, and neurovascular intact distally. No focal or lateralizing neurologic abnormalities. Test Results: CT head, face, and C-spine unremarkable for any acute abnormalities other than forehead soft tissue swelling. Emergency Department Course and Treatment: Patient's tetanus status is up-to-date. Laceration was sometimes, cleaned, explored, and sutured with simple interrupted sutures. We did achieve hemostasis. Patient had improvement during her stay. No further seizure activity. She is requesting discharge. She will continue taking her seizure medication and follow-up with her neurologist. She was given seizure precautions, no driving. Treatment Plan: As above Disposition: Discharged Impression: 1. Seizure 2. Forehead laceration This note was generated with [employer] dictation software. It may contain incorrect words, spelling, and punctuation that were not noted in review of the chart prior to signing ED Disposition - Plan for ED Patient: Chief Complaint: Seizure Referrals: Hayder Tate MD [Primary Care Provider] -
--- NOTE | 2017-10-01 02:53 | ED.DCSUM_ITS ---
- ER Visit Summary Date of Service: 10/01/17 Chief Complaint: Seizure History of Present Illness: The patient is a 47 F who presents with friends. They heard her fall. She had seizure activity and she sustained a laceration to her forehead. Bleeding stopped with direct pressure. No other injuries or complaints. She has been confused since the episode. This is typical of her seizures. She is compliant with her medication. Physical Examination: Hypertensive but otherwise vitals unremarkable. Patient is alert, but slow to respond to questions. She has a 5 cm transverse forehead laceration which is oozing bright red blood. The remainder of her HEENT exam is atraumatic. Neck is nontender. Chest nontender. Heart regular. Lungs clear. Abdomen soft. Back nontender. Extremities atraumatic, nontender, and neurovascular intact distally. No focal or lateralizing neurologic abnormalities. Test Results: CT head, face, and C-spine unremarkable for any acute abnormalities other than forehead soft tissue swelling. Emergency Department Course and Treatment: Patient's tetanus status is up-to- date. Laceration was sometimes, cleaned, explored, and sutured with simple interrupted sutures. We did achieve hemostasis. Patient had improvement during her stay. No further seizure activity. She is requesting discharge. She will continue taking her seizure medication and follow-up with her neurologist. She was given seizure precautions, no driving. Treatment Plan: As above Disposition: Discharged Impression: 1. Seizure 2. Forehead laceration This note was generated with [employer] dictation software. It may contain incorrect words, spelling, and punctuation that were not noted in review of the chart prior to signing ED Disposition - Plan for ED Patient: Chief Complaint: Seizure Referrals: Hayder Tate MD [Primary Care Provider] -
--- NOTE | 2017-10-01 02:53 | ED.DEP ---
ED Disposition - Plan for ED Patient: Chief Complaint: Seizure Instructions: ED Seizure Recurrent Referrals: Hayder Tate MD [Primary Care Provider] -
[2017-10-01 02:59] VITALS: BP 122/82; PULSE 71; RESP 18; O2SAT 96
== END 2017-10-01 03:01 | disposition home or self-care (01) ==
LOC: ED 01:52
PROVIDERS: Emergency Provider Emergency Medicine; Family Provider Family Medicine; PCP Family Medicine
DX: R56.9 Unspecified convulsions (principal); S01.81XA Laceration without foreign body of other part of head, initial encounter; W19.XXXA Unspecified fall, initial encounter; Y93.9 Activity, unspecified; Y92.89 Other specified places as the place of occurrence of the external cause; Y99.9 Unspecified external cause status; Z23 Encounter for immunization
CPT/HCPCS: 12013; 70450; 70486; 72125; 90715; 99285

== ENCOUNTER 2017-10-15 20:43 | Emergency (ER) | payer MEDICARE, MEDICAID, SELFPAY ==
[2017-10-15 20:44] VITALS: PULSE 129; RESP 20; BMI 28.3
[2017-10-15 20:52] VITALS: BP 124/95; PULSE 89; RESP 26; TEMP 36.5; O2SAT 100
[2017-10-15 21:53] VITALS: BP 116/70; PULSE 75; RESP 14; O2SAT 99
[2017-10-15 22:03] VITALS: BP 127/68; PULSE 83; RESP 14; O2SAT 99
--- NOTE | 2017-10-15 22:40 | ED.VISSUMM ---
- ER Visit Summary Date of Service: 10/15/17 Chief Complaint: [Seizure] History of Present Illness: The patient is a 47 F [presents the emergency department with complaint of a seizure that occurred prior to arrival in the emergency department. Patient presented via EMS. Patient currently living with some friends that have power of prosecuting attorney for her. Patient apparently was acting slightly confused this afternoon however caregiver left the house for about 45 minutes when she came back from the patient at the top of the steps somewhat unresponsive but quickly started coming to. Patient was noted to have a laceration to her scalp. It is unclear how long the seizure may have lasted. Patient has history of seizure disorder and her last seizure was several weeks ago. Patient is on Lamictal and has been compliant per caregivers. Patient really able to follow commands here but not giving me much verbal response.] Physical Examination: [HEENT-PERRLA, EOMI. Cranial nerves II through XII grossly intact. TMs clear. Mucous membranes moist. No adenopathy. Patient has a 4 cm laceration to left frontal scalp. No active bleeding at this time. No bony depressions noted. Patient has some mild diffuse C-spine tenderness on palpation. Cardiovascular-regular rate and rhythm without murmur or ectopy Lungs-clear to auscultation, chest wall stable without crepitus or subcu emphysema Abdomen-normoactive bowel sounds, soft, nontender, no rebound or rigidity, no peritoneal signs. Neuro exam-patient has eyes open and follows commands. No focal weakness noted. Extremities-intact ?4, normal range of motion, normal pulses, atraumatic] Test Results: [CT scan of the brain without contrast was unremarkable. CT of the C-spine was unremarkable.] Emergency Department Course and Treatment: [Laceration repair-wound sterilely draped and prepped. Using 1% lidocaine total 5 cc of 1% lidocaine used to anesthetize the area. Wound cleansed with Shur-Clens and irrigated with copious saline. Using 5-0 nylon a total of 6 single interrupted sutures placed with good wound edge approximation. Patient tolerated procedure well.] Treatment Plan: [Patient to follow-up with primary care physician in 5-7 days for suture removal.] Disposition: [Discharged home in stable condition] Impression: [Recurrent seizure Closed head injury Scalp laceration-simple repair 4 cm] This note was generated with Dragon dictation software. It may contain incorrect words, spelling, and punctuation that were not noted in review of the chart prior to signing ED Disposition - Plan for ED Patient: Chief Complaint: Seizure Referrals: Hayder Tate MD [Primary Care Provider] -
--- NOTE | 2017-10-15 22:44 | ED.DEP ---
ED Disposition - Plan for ED Patient: Chief Complaint: Seizure Instructions: ED Seizure Recurrent, ED Head Injury Closed, ED Laceration Scalp Stitch Or Stap Referrals: Hayder Tate MD [Primary Care Provider] - 7 Days for suture removal
[2017-10-15 22:59] VITALS: BP 133/80; PULSE 80; RESP 14; O2SAT 98
== END 2017-10-15 23:03 | disposition home or self-care (01) ==
LOC: ED 21:39
PROVIDERS: Emergency Provider Emergency Medicine; Family Provider Family Medicine; PCP Family Medicine
DX: G40.909 Epilepsy, unspecified, not intractable, without status epilepticus (principal); S01.01XA Laceration without foreign body of scalp, initial encounter; X58.XXXA Exposure to other specified factors, initial encounter; Y93.89 Activity, other specified; Y92.9 Unspecified place or not applicable; Y99.9 Unspecified external cause status
CPT/HCPCS: 12002; 70450; 72125; 99284

== ENCOUNTER 2018-01-17 05:35 | Emergency (ER) | payer MEDICARE, SELFPAY ==
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
== END 2018-01-17 06:30 | disposition left against medical advice (07) ==
PROVIDERS: Emergency Provider Emergency Medicine; Family Provider Family Medicine; PCP Family Medicine
DX: R45.1 Restlessness and agitation (principal)

== ENCOUNTER → 2018-01-18 11:58 | Outpatient (CLI) | payer MEDICARE, SELFPAY ==
--- NOTE | 2018-01-18 12:03 | RAD_ITS ---
STUDY: X-RAY - RIGHT HAND REASON FOR EXAM: Lateral right hand and wrist pain after a fall yesterday. TECHNIQUE: 3 view(s) of the hand. COMPARISON: None. FINDINGS: There is chronic healed fracture deformity of the distal radius. Normal radiocarpal articulation. Normal distal radioulnar joint. Normal visualized carpal bones. Normal carpal articulations Normal carpometacarpal articulation of the thumb. Normal second through fifth carpometacarpal joints. There is chronic healed fracture deformity of the fifth metacarpal neck. Normal metacarpophalangeal joint of the thumb. Normal interphalangeal joint of the thumb. Normal proximal and distal phalanges of the thumb. There is [id number] joint space narrowing of the fifth metacarpophalangeal joint. Normal proximal and distal interphalangeal joints of the second through fifth fingers. Normal phalanges of the second through fifth fingers. There is a very small ossicle at the distal aspect of the ulnar styloid process. RAD/Hand Min 3 Views IMPRESSION: Chronic healed fracture deformity of the distal radius and fifth metacarpal neck without demonstrated recent fracture. Arthrosis of the fifth metacarpophalangeal joint. Electronically Signed: Raimundo Hollingsworth MD at 12:46 EST Tel , Service support ,
--- NOTE | 2018-01-18 12:03 | RAD_ITS ---
STUDY: X-RAY - RIGHT SHOULDER REASON FOR EXAM: Right shoulder pain, fall yesterday. TECHNIQUE: 2 view(s) of the shoulder. COMPARISON: None. FINDINGS: Normal glenohumeral articulation. Normal acromioclavicular joint. Normal acromion. Normal humeral head and visualized proximal humerus. The soft tissue structures are unremarkable. Normal visualized pulmonary apex. RAD/Shoulder min 2 Views IMPRESSION: Unremarkable x-ray examination of the right shoulder without demonstrated fracture. Electronically Signed: Raimundo Hollingsworth MD at 13:03 EST Tel , Service support ,
== END ==
PROVIDERS: Family Provider Family Medicine; PCP Family Medicine; Referring Provider Nurse Practitioner Family; Visit Provider Nurse Practitioner Family
DX: S69.91XA Unspecified injury of right wrist, hand and finger(s), initial encounter (principal)
CPT/HCPCS: 73030; 73130

== ENCOUNTER 2018-02-07 02:35 | Emergency (ER) | payer MEDICARE, SELFPAY ==
[2018-02-07 02:37] VITALS: BP 109/79; PULSE 104; RESP 15; O2SAT 97; BMI 24.5
--- NOTE | 2018-02-07 02:54 | CT_ITS ---
STUDY: CT CERVICAL SPINE WITHOUT CONTRAST REASON FOR EXAM: Female, 47 years old. Seizure, fall. RADIATION DOSAGE (If Supplied By Facility): CTDIvol = ( 20.27 ) mGy, DLP = ( 388.51 ) mGycm TECHNIQUE: High resolution transaxial imaging was performed without contrast material. Sagittal and coronal images were reconstructed. Individualized dose optimization techniques were used for this CT. COMPARISON: October 15, 2017. FINDINGS: Normal craniovertebral junction. Normal anterior atlantoaxial articulation. Normal odontoid process. Normal cervical lordosis. Normal vertebral bodies and posterior osseous elements. C2-3: Normal endplates. Normal disc height and morphology. Normal central canal and intervertebral neuroforamina. C3-4: Normal endplates. Normal disc height and morphology. Normal central canal and intervertebral neuroforamina. C4-5: Normal endplates. Normal disc height and morphology. Normal central canal and intervertebral neuroforamina. C5-6: Disc space narrowing with anterior marginal osteophytes. Posterior osteophyte. No significant central canal stenosis. Mild right neural foramina narrowing. C6-7: Disc space narrowing with anterior marginal osteophytes. Right posterior osteophyte. Right neural foraminal narrowing. Normal central canal. C7-T1: Normal endplates. Normal disc height and morphology. Normal central canal and intervertebral neuroforamina. Normal visualized soft tissue structures. CT/Spine Cervical without Contras IMPRESSION: No fracture identified in the cervical spine. Degenerative changes C5-6 and C6-7 similar in appearance to the prior exam. Electronically Signed: Bird Cool MD at 4:27 EST , Service support ,
--- NOTE | 2018-02-07 02:54 | CT_ITS ---
STUDY: CT BRAIN WITHOUT CONTRAST REASON FOR EXAM: Female, 47 years old. Seizure, fall, large laceration to forehead RADIATION DOSAGE (If Supplied By Facility): CTDIvol = ( 44.99 ) mGy, DLP = ( 762.36 ) mGycm TECHNIQUE: Transaxial CT imaging of the brain was performed without administration of intravenous contrast material. Individualized dose optimization techniques were used for this CT. COMPARISON: October 15, 2017. FINDINGS: Mild midline frontal scalp swelling. Right frontal scalp irregularity best seen on the coronal images are unchanged. Normal calvarium. Normal size ventricles and extra-axial spaces for the patient's age. Normal white matter tracts of the cerebral hemispheres. Normal basal ganglia and thalami. Normal brainstem. Normal cerebellum. There is no intracranial hemorrhage. There are no findings of an acute ischemic infarction. Normal visualized paranasal sinuses. The patient had the same presentation for the prior CT head of October 15, 2017. CT/Brain/Head without Contrast IMPRESSION: No acute intracranial abnormality. Minimal frontal scalp swelling. Electronically Signed: Bird Cool MD at 4:18 EST , Service support ,
--- NOTE | 2018-02-07 03:40 | ED.RN ---
Told pt we needed to get a urine sample, pt replies, i will not give a urine sample.Dr. Garcia notified.
[2018-02-07 03:53] LABS: Anion Gap 11 (5-15); BUN 10 mg/dL (7-18); BUN/Creat Ratio 15.7 RATIO (10-20); Calcium,Total 8.3 mg/dL (8.5-10.1); Chloride 108 mmol/L (98-107); Creatinine, Serum 0.64 mg/dL (0.55-1.02); EST Glomerular Filtration Rate 106 mL/min (>60); Est Glom Filt Rate - Afr Amer 129 mL/min (>60); Estimated Creatinine Clearance 102.82 ml/min; Glucose 99 mg/dL (74-106); Potassium 3.5 mmol/L (3.5-5.1); Sodium Level 144 mmol/L (136-145)
--- NOTE | 2018-02-07 04:00 | ED.RN ---
pt removed all leads and bp cuff. pt got dressed and walked out to waiting room and started to argue with her friend (poa). two nurses and dr. haile asked pt to stay until her ct scan comes back. pt refused to stay. Pt and friend (poa) left the er.
--- NOTE | 2018-02-07 04:11 | ED.VISSUMM ---
- ER Visit Summary Date of Service: 02/07/18 Chief Complaint: Seizure History of Present Illness: The patient is a 47 F presenting by EMS after seizure. Her power of staff attorney states that she has been acting like she was going to have a seizure today. 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 She was recently admitted to [facility] for monitoring. According to her POA, she was admitted approximately 5-6 days. She had no seizure activity during that stay. She is not currently on any seizure medications. Her POA states that she has been diagnosed with both epileptic and nonepileptic seizures. Today she fell and hit her head. This was unwitnessed, unknown LOC. Her tetanus is up-to-date. She is currently on Xanax for anxiety. Physical Examination: Vitals are stable. Patient is afebrile. Alert no acute distress. HEENT exam 8 cm forehead laceration Neck is nontender Lungs are clear and equal bilaterally. Heart is regular rate and rhythm. Abdomen is soft nontender nondistended. Extremities are unremarkable. Skin is warm and dry. No focal neurologic deficit. Initially postictal, responding appropriately to questions Remainder of exam is unremarkable. Emergency Department Course and Treatment: Laceration was repaired under sterile conditions. Irrigated with saline. 7, 5-0 simple sutures were placed. Basic metabolic panel was unremarkable. Alcohol is 181. CT head shows no acute intracranial abnormality, minimal frontal scalp swelling. CT cervical spine shows no fracture. Patient is unwilling to stay in the ED for further monitoring. Prior to completion of her evaluation, she eloped from the ED with her POA. Disposition: Elopement Impression: Seizure, forehead laceration, laceration repair This note was generated with [employer] dictation software. It may contain incorrect words, spelling, and punctuation that were not noted in review of the chart prior to signing ED Disposition - Plan for ED Patient: Disposition: Against Medical Advice Chief Complaint: Seizure Referrals: Hayder Tate MD [Primary Care Provider] -
--- NOTE | 2018-02-07 04:16 | ED.DCSUM_ITS ---
- ER Visit Summary Date of Service: 02/07/18 Chief Complaint: Seizure History of Present Illness: The patient is a 47 F presenting by EMS after seizure. Her power of attorney recruiter states that she has been acting like she was going to have a seizure today. 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 She was recently admitted to [facility] for monitoring. According to her POA, she was admitted approximately 5-6 days. She had no seizure activity during that stay. She is not currently on any seizure medications. Her POA states that she has been diagnosed with both epileptic and nonepileptic seizures. Today she fell and hit her head. This was unwitnessed, unknown LOC. Her tetanus is up-to-date. She is currently on Xanax for anxiety. Physical Examination: Vitals are stable. Patient is afebrile. Alert no acute distress. HEENT exam 8 cm forehead laceration Neck is nontender Lungs are clear and equal bilaterally. Heart is regular rate and rhythm. Abdomen is soft nontender nondistended. Extremities are unremarkable. Skin is warm and dry. No focal neurologic deficit. Initially postictal, responding appropriately to questions Remainder of exam is unremarkable. Emergency Department Course and Treatment: Laceration was repaired under sterile conditions. Irrigated with saline. 7, 5-0 simple sutures were placed. Basic metabolic panel was unremarkable. Alcohol is 181. CT head shows no acute intracranial abnormality, minimal frontal scalp swelling. CT cervical spine shows no fracture. Patient is unwilling to stay in the ED for further monitoring. Prior to completion of her evaluation, she eloped from the ED with her POA. Disposition: Elopement Impression: Seizure, forehead laceration, laceration repair This note was generated with Talk[employer] dictation software. It may contain incorrect words, spelling, and punctuation that were not noted in review of the chart prior to signing ED Disposition - Plan for ED Patient: Disposition: Against Medical Advice Chief Complaint: Seizure Referrals: Hayder Tate MD [Primary Care Provider] -
== END 2018-02-07 04:07 | disposition left against medical advice (07) ==
PROVIDERS: Emergency Provider Emergency Medicine; Family Provider Family Medicine; PCP Family Medicine
DX: S01.81XA Laceration without foreign body of other part of head, initial encounter (principal); G40.909 Epilepsy, unspecified, not intractable, without status epilepticus; F41.9 Anxiety disorder, unspecified; W18.30XA Fall on same level, unspecified, initial encounter; Y93.9 Activity, unspecified; Y92.89 Other specified places as the place of occurrence of the external cause; Y99.9 Unspecified external cause status; K21.9 Gastro-esophageal reflux disease without esophagitis
CPT/HCPCS: 12015; 36415; 70450; 72125; 80048; 80320; 99283; G0480

== ENCOUNTER → 2019-01-03 14:47 | Outpatient (CLI) | payer MEDICARE, MEDICAID, SELFPAY ==
[2019-01-03 17:43] LABS: ALB/GLOB Ratio 0.9 RATIO (0.9-2.4); AST(SGOT) 44 U/L (15-37); Alanine Aminotransfer ALT/SGPT 54 U/L (13-56); Albumin, Serum 3.4 g/dL (3.2-5.0); Alkaline Phosphatase 81 U/L (45-117); Anion Gap 9 (5-15); BUN 8 mg/dL (7-18); BUN/Creat Ratio 10.6 RATIO (10-20); Calcium,Total 8.6 mg/dL (8.5-10.1); Chloride 106 mmol/L (98-107); Creatinine, Serum 0.76 mg/dL (0.55-1.02); EST Glomerular Filtration Rate 87 mL/min (>60); Est Glom Filt Rate - Afr Amer 105 mL/min (>60); Globulin 3.7 g/dL (2.2-4.2); Glucose 91 mg/dL (74-106); Potassium 3.3 mmol/L (3.5-5.1); Protein, Total 7.1 g/dL (6.4-8.2); Sodium Level 140 mmol/L (136-145)
[2019-01-04 09:45] LABS: Hepatitis C Antibody REACTIVE (Nonreactive)
[2019-01-10 14:29] LABS: HCV Quant. RNA PCR 870 IU/mL (.)
== END ==
PROVIDERS: Family Provider Family Medicine; PCP Family Medicine; Visit Provider Family Medicine
DX: B18.2 Chronic viral hepatitis C (principal)
CPT/HCPCS: 36415; 80053; 86803; 87522; 87902

== ENCOUNTER → 2019-06-16 10:22 | Outpatient (CLI) | payer MEDICARE, MEDICAID, SELFPAY ==
[2019-06-16 12:07] LABS: Absolute Lymphocyte Count 1.39 X10^3/uL (0.83-4.51); Absolute Neutrophil Count 4.7 X10^3/uL (2.0-7.7); Basophil# 0.06 X10^3/uL; Basophil% 0.9 % (0-1); Eosinophil# 0.17 X10^3/uL; Eosinophils% 2.5 % (0-5); Hematocrit 38.5 % (37-47); Hemoglobin 12.8 g/dL (12.0-15.0); Lymphocyte # 1.39 X10^3/ul (4.0); Lymphocyte % 20.2 % (19-41); Mean Corp Hgb Conc 33.2 g/dL (32-36); Mean Corpuscular Hgb 31.7 pg (27.0-32.0); Mean Corpuscular Volume 95.3 fL (81-99); Mean Platelet Vol. 9.1 fl (6.2-12.0); Monocyte# 0.52 X10^3/uL; Monocyte% 7.5 % (0-10); NRBC Flagged by Analyzer 0 % (0-5); Neutrophil # 4.72 X10^3/uL (2.7-7.7); Neutrophil % 68.5 % (47-70); Platelet Count 360 K/mm3 (150-450); RBC Distribution Width CV 12.5 % (11.6-14.6); RBC Distribution Width SD 43.7 fl (35.1-43.9); Red Blood Count 4.04 M/mm3 (4.2-5.4); White Blood Count 6.9 K/mm3 (4.4-11.0)
[2019-06-16 12:21] LABS: Vitamin B12 875 pg/mL (211-911)
[2019-06-16 12:28] LABS: ALB/GLOB Ratio 0.8 RATIO (0.9-2.4); AST(SGOT) 24 U/L (15-37); Alanine Aminotransfer ALT/SGPT 44 U/L (13-56); Albumin, Serum 3.2 g/dL (3.2-5.0); Alkaline Phosphatase 97 U/L (45-117); Anion Gap 8 (5-15); BUN 7 mg/dL (7-18); BUN/Creat Ratio 7.9 RATIO (10-20); Calcium,Total 8.7 mg/dL (8.5-10.1); Chloride 106 mmol/L (98-107); Creatinine, Serum 0.89 mg/dL (0.55-1.02); EST Glomerular Filtration Rate 72 mL/min (>60); Est Glom Filt Rate - Afr Amer 87 mL/min (>60); Globulin 3.8 g/dL (2.2-4.2); Glucose 103 mg/dL (74-106); Potassium 2.8 mmol/L (3.5-5.1); Sodium Level 141 mmol/L (136-145); T4 Free Direct 0.76 ng/dL (0.76-1.46); Thyroid Stim Hormone (TSH) 4.71 uIU/mL (0.358-3.74)
[2019-06-20 14:07] LABS: Thyroid Peroxidase AB < 9 IU/mL (0-34)
[2019-06-20 15:01] LABS: Thyroglobulin Antibody < 1.0 IU/mL (0.0-0.9)
== END ==
PROVIDERS: PCP Family Medicine; Referring Provider Family Medicine; Visit Provider Family Medicine
DX: R53.83 Other fatigue (principal); R79.89 Other specified abnormal findings of blood chemistry
CPT/HCPCS: 36415; 80053; 82607; 84439; 84443; 85025; 86376; 86800

== ENCOUNTER → 2019-06-22 12:33 | Outpatient (CLI) | payer MEDICARE, MEDICAID, SELFPAY ==
[2019-06-22 15:41] LABS: Potassium 3.3 mmol/L (3.5-5.1)
== END ==
PROVIDERS: PCP Family Medicine; Referring Provider Family Medicine; Visit Provider Family Medicine
DX: E87.6 Hypokalemia (principal)
CPT/HCPCS: 36415; 84132

== ENCOUNTER → 2019-07-05 14:05 | Outpatient (CLI) | payer MEDICARE, MEDICAID, SELFPAY ==
[2019-07-05 18:06] LABS: Anion Gap 9 (5-15); BUN 12 mg/dL (7-18); BUN/Creat Ratio 15.4 RATIO (10-20); Calcium,Total 9.3 mg/dL (8.5-10.1); Chloride 107 mmol/L (98-107); Creatinine, Serum 0.78 mg/dL (0.55-1.02); EST Glomerular Filtration Rate 84 mL/min (>60); Est Glom Filt Rate - Afr Amer 101 mL/min (>60); Glucose 114 mg/dL (74-106); Magnesium 1.8 mg/dL (1.6-2.6); Potassium 3.6 mmol/L (3.5-5.1); Sodium Level 140 mmol/L (136-145)
== END ==
PROVIDERS: PCP Family Medicine; Referring Provider Family Medicine; Visit Provider Family Medicine
DX: E87.6 Hypokalemia (principal)
CPT/HCPCS: 36415; 80048; 83735

== ENCOUNTER → 2019-09-14 13:41 | Outpatient (CLI) | payer MEDICARE, MEDICAID, SELFPAY ==
[2019-09-14 16:42] LABS: Anion Gap 6 (5-15); BUN 7 mg/dL (7-18); BUN/Creat Ratio 8.5 RATIO (10-20); Calcium,Total 9.1 mg/dL (8.5-10.1); Chloride 106 mmol/L (98-107); Creatinine, Serum 0.83 mg/dL (0.55-1.02); EST Glomerular Filtration Rate 78 mL/min (>60); Est Glom Filt Rate - Afr Amer 95 mL/min (>60); Glucose 116 mg/dL (74-106); Potassium 3.7 mmol/L (3.5-5.1); Sodium Level 138 mmol/L (136-145); T4 Free Direct 0.87 ng/dL (0.76-1.46); Thyroid Stim Hormone (TSH) 2.22 uIU/mL (0.358-3.74)
== END ==
PROVIDERS: PCP Family Medicine; Visit Provider Family Medicine
DX: E03.9 Hypothyroidism, unspecified (principal); R03.0 Elevated blood-pressure reading, without diagnosis of hypertension
CPT/HCPCS: 36415; 80048; 84439; 84443

== ENCOUNTER → 2019-12-14 13:53 | Outpatient (CLI) | payer MEDICARE, MEDICAID, SELFPAY ==
[2019-12-14 16:28] LABS: ALB/GLOB Ratio 0.9 RATIO (0.9-2.4); AST(SGOT) 27 U/L (15-37); Alanine Aminotransfer ALT/SGPT 56 U/L (13-56); Albumin, Serum 3.5 g/dL (3.2-5.0); Alkaline Phosphatase 95 U/L (45-117); Anion Gap 8 (5-15); BUN 8 mg/dL (7-18); BUN/Creat Ratio 11.7 RATIO (10-20); Calcium,Total 9.4 mg/dL (8.5-10.1); Chloride 106 mmol/L (98-107); Creatinine, Serum 0.68 mg/dL (0.55-1.02); EST Glomerular Filtration Rate 97 mL/min (>60); Est Glom Filt Rate - Afr Amer 118 mL/min (>60); Glucose 107 mg/dL (74-106); Protein, Total 7.5 g/dL (6.4-8.2); Sodium Level 139 mmol/L (136-145); T4 Free Direct 0.84 ng/dL (0.76-1.46); Thyroid Stim Hormone (TSH) 2.16 uIU/mL (0.358-3.74)
[2019-12-18 07:15] LABS: Anti-Thyroglobulin AB < 1.0 IU/mL (0.0-0.9); Thyroglobulin, Serum Qt. 13.8 ng/mL (1.5-38.5); Thyroid Peroxidase AB < 9 IU/mL (0-34)
== END ==
PROVIDERS: PCP Family Medicine; Referring Provider Family Medicine; Visit Provider Family Medicine
DX: E03.9 Hypothyroidism, unspecified (principal); I10 Essential (primary) hypertension; E66.9 Obesity, unspecified
CPT/HCPCS: 36415; 80053; 84432; 84439; 84443; 86376; 86800

== ENCOUNTER → 2020-02-08 15:33 | Outpatient (CLI) | payer MEDICARE, MEDICAID, SELFPAY ==
--- NOTE | 2020-02-08 15:50 | RAD_ITS ---
STUDY: X-RAY CHEST REASON FOR EXAM: Female, 49 years old. Dyspnea TECHNIQUE: Frontal view COMPARISON: 05/06/2017 FINDINGS: The lungs are expanded. Bilateral basilar atelectasis. Normal size heart. Normal mediastinum and sukhi. Normal visualized pulmonary arteries. Normal visualized aortic arch and descending thoracic aorta. Normal visualized thoracic spine. Normal visualized ribs, clavicles, and shoulders. There is no demonstrated abnormality of the visualized soft tissue structures of the upper abdomen. RAD/Chest PA and Lateral IMPRESSION: Bibasilar atelectasis. Electronically Signed: Chicho Marx DO at 23:23 EST Tel [phone], Service support ,
== END ==
PROVIDERS: PCP Family Medicine; Referring Provider Internal Medicine Pulmonary Disease; Visit Provider Internal Medicine Pulmonary Disease
DX: R06.00 Dyspnea, unspecified (principal)
CPT/HCPCS: 71046

== ENCOUNTER → 2020-03-15 12:51 | Outpatient (CLI) | payer MEDICARE, MEDICAID, SELFPAY ==
[2020-03-15 13:39] LABS: Bacteria 0 SEEN /hpf (None Seen); Mucous, Urine 0 SEEN /hpf (<or=2+); White Blood Cells 0 SEEN /hpf (0-5)
[2020-03-15 15:23] LABS: Color, Urine Yellow (Yellow); Glucose, Dipstick Normal (Normal); Ketone-Dipstick 5 mg/dl (Negative); Leukocyte Esterase-Dipstick Negative /ul (Negative); Nitrite-Dipstick Negative (Negative); Occult Blood-Urine 10 /ul (Negative); Protein-Dipstick 15 mg/dl (Negative); Specific Gravity, Urine 1.025 (1.002-1.030); Urine Bilirubin Dipstick Negative (Negative); Urine Clarity Sl. Cloudy (Clear); Urine Urobilinogen Normal (Normal)
[2020-03-15 15:26] LABS: Absolute Lymphocyte Count 1.66 X10^3/uL (0.83-4.51); Absolute Neutrophil Count 7.7 X10^3/uL (2.0-7.7); Basophil# 0.06 X10^3/uL; Basophil% 0.6 % (0-1); Eosinophil# 0.11 X10^3/uL; Eosinophils% 1.1 % (0-5); Hematocrit 37.8 % (37-47); Hemoglobin 12.1 g/dL (12.0-15.0); Lymphocyte # 1.66 X10^3/ul (4.0); Lymphocyte % 16.3 % (19-41); Mean Corpuscular Hgb 31.7 pg (27.0-32.0); Mean Platelet Vol. 9.5 fl (6.2-12.0); Monocyte# 0.62 X10^3/uL; Monocyte% 6.1 % (0-10); NRBC Flagged by Analyzer 0 % (0-5); Neutrophil # 7.69 X10^3/uL (2.7-7.7); Neutrophil % 75.7 % (47-70); Platelet Count 407 K/mm3 (150-450); RBC Distribution Width CV 12.6 % (11.6-14.6); RBC Distribution Width SD 45.8 fl (35.1-43.9); Red Blood Count 3.82 M/mm3 (4.2-5.4); White Blood Count 10.2 K/mm3 (4.4-11.0)
[2020-03-15 15:51] LABS: AST(SGOT) 38 U/L (15-37); Alanine Aminotransfer ALT/SGPT 73 U/L (13-56); Albumin, Serum 3.8 g/dL (3.2-5.0); Alkaline Phosphatase 96 U/L (45-117); Anion Gap 10 (5-15); BUN 8 mg/dL (7-18); BUN/Creat Ratio 10.8 RATIO (10-20); Calcium,Total 8.6 mg/dL (8.5-10.1); Chloride 104 mmol/L (98-107); Creatinine, Serum 0.74 mg/dL (0.55-1.02); EST Glomerular Filtration Rate 88 mL/min (>60); Est Glom Filt Rate - Afr Amer 107 mL/min (>60); Globulin 3.8 g/dL (2.2-4.2); Glucose 86 mg/dL (74-106); Potassium 3.4 mmol/L (3.5-5.1); Protein, Total 7.6 g/dL (6.4-8.2); Sodium Level 137 mmol/L (136-145); T4 Free Direct 0.93 ng/dL (0.76-1.46); Thyroid Stim Hormone (TSH) 1.73 uIU/mL (0.358-3.74)
[2020-03-15 16:31] LABS: Red Blood Cells-Urine 0-5 SEEN /hpf (0-5); Squamous Epithelial Cells - UA 0-5 SEEN /hpf (5-10)
== END ==
PROVIDERS: PCP Family Medicine; Referring Provider Internal Medicine Pulmonary Disease; Visit Provider Internal Medicine Pulmonary Disease
DX: E03.9 Hypothyroidism, unspecified (principal); D64.9 Anemia, unspecified; I10 Essential (primary) hypertension
CPT/HCPCS: 36415; 80053; 81001; 84439; 84443; 85025

== ENCOUNTER → 2020-04-10 14:33 | Outpatient (CLI) | payer MEDICARE, MEDICAID, SELFPAY | PROVIDERS: PCP Family Medicine; Referring Provider Family Medicine; Visit Provider Family Medicine | DX: B34.9 Viral infection, unspecified (principal) | CPT/HCPCS: 87635; U0005; U0003 ==

== ENCOUNTER → 2020-04-20 15:17 | Outpatient (CLI) | payer MEDICARE, MEDICAID, SELFPAY ==
[2020-04-26 05:07] LABS: Alternaria alternata <0.10 kU/L (Class 0); Aspergillus fumigatus <0.10 kU/L (Class 0); Bahia Grass <0.10 kU/L (Class 0); Bermuda Grass <0.10 kU/L (Class 0); Bluegrass, Kentucky <0.10 kU/L (Class 0); Cat Hair/Dander, Standard <0.10 kU/L (Class 0); Cedar, Mountain <0.10 kU/L (Class 0); Cladosporium herbarum <0.10 kU/L (Class 0); Cockroach, American <0.10 kU/L (Class 0); D farinae Mite <0.10 kU/L (Class 0); D pteronyssinus <0.10 kU/L (Class 0); Dog Epithelia <0.10 kU/L (Class 0); Elm, American White <0.10 kU/L (Class 0); Hazelnut Tree <0.10 kU/L (Class 0); Hickory, White <0.10 kU/L (Class 0); Johnson Grass <0.10 kU/L (Class 0); Maple/Box Elder <0.10 kU/L (Class 0); Mucor racemosus <0.10 kU/L (Class 0); Mugwort <0.10 kU/L (Class 0); Mulberry, White <0.10 kU/L (Class 0); Oak, White <0.10 kU/L (Class 0); Penicillium chrysogen <0.10 kU/L (Class 0); Pigweed, Rough <0.10 kU/L (Class 0); Plantain, English <0.10 kU/L (Class 0); Ragweed, Short/Common <0.10 kU/L (Class 0); Sheep Sorrel(Dock) <0.10 kU/L (Class 0); Stemphylium herbarum <0.10 kU/L (Class 0); Sweet Gum <0.10 kU/L (Class 0); Sycamore, American <0.10 kU/L (Class 0)
[2020-04-26 08:20] LABS: Nettle <0.10 kU/L (Class 0)
== END ==
PROVIDERS: PCP Family Medicine; Referring Provider Family Medicine; Visit Provider Family Medicine
DX: T78.40XA Allergy, unspecified, initial encounter (principal)
CPT/HCPCS: 36415; 86003

== ENCOUNTER → 2020-06-14 15:30 | Outpatient (CLI) | payer MEDICARE, MEDICAID, SELFPAY ==
[2020-06-14 17:51] LABS: Absolute Lymphocyte Count 1.48 X10^3/uL (0.83-4.51); Absolute Neutrophil Count 9.8 X10^3/uL (2.0-7.7); Basophil# 0.09 X10^3/uL; Basophil% 0.7 % (0-1); Eosinophil# 0.13 X10^3/uL; Eosinophils% 1.1 % (0-5); Hematocrit 41.8 % (37-47); Hemoglobin 13.5 g/dL (12.0-15.0); Lymphocyte # 1.48 X10^3/ul (0.83-4.51); Lymphocyte % 12.1 % (19-41); Mean Corp Hgb Conc 32.3 g/dL (32-36); Mean Corpuscular Volume 96.1 fL (81-99); Mean Platelet Vol. 9.4 fl (6.2-12.0); Monocyte# 0.65 X10^3/uL; Monocyte% 5.3 % (0-10); NRBC Flagged by Analyzer 0 % (0-5); Neutrophil # 9.84 X10^3/uL (2.7-7.7); Neutrophil % 80.4 % (47-70); Platelet Count 469 K/mm3 (150-450); RBC Distribution Width CV 12.7 % (11.6-14.6); RBC Distribution Width SD 44.9 fl (35.1-43.9); Red Blood Count 4.35 M/mm3 (4.2-5.4); White Blood Count 12.2 K/mm3 (4.4-11.0)
[2020-06-14 18:30] LABS: ALB/GLOB Ratio 0.9 RATIO (0.9-2.4); AST(SGOT) 38 U/L (15-37); Alanine Aminotransfer ALT/SGPT 62 U/L (13-56); Albumin, Serum 3.9 g/dL (3.2-5.0); Alkaline Phosphatase 102 U/L (45-117); Anion Gap 6 (5-15); BUN 12 mg/dL (7-18); BUN/Creat Ratio 15.8 RATIO (10-20); Calcium,Total 9.7 mg/dL (8.5-10.1); Chloride 102 mmol/L (98-107); Cholesterol 367 mg/dL (200); Creatinine, Serum 0.76 mg/dL (0.55-1.02); EST Glomerular Filtration Rate 86 mL/min (>60); Est Glom Filt Rate - Afr Amer 104 mL/min (>60); Globulin 4.2 g/dL (2.2-4.2); Glucose 125 mg/dL (74-106); High Density Lipoprotein 57 mg/dL; Protein, Total 8.1 g/dL (6.4-8.2); Sodium Level 138 mmol/L (136-145); T4 Free Direct 0.81 ng/dL (0.76-1.46); Thyroid Stim Hormone (TSH) 2.28 uIU/mL (0.358-3.74); Triglycerides 762 mg/dL
[2020-06-19 16:08] LABS: HCV Quant. RNA PCR HCV Not Detected IU/mL (.)
[2020-06-20 12:18] LABS: Anti-Thyroglobulin AB < 1.0 IU/mL (0.0-0.9); Thyroglobulin, Serum Qt. 14.9 ng/mL (1.5-38.5); Thyroid Peroxidase AB < 9 IU/mL (0-34)
== END ==
PROVIDERS: PCP Family Medicine; Referring Provider Family Medicine; Visit Provider Family Medicine
DX: I10 Essential (primary) hypertension (principal); B18.2 Chronic viral hepatitis C
CPT/HCPCS: 36415; 80053; 80061; 84432; 84439; 84443; 85025; 86376; 86800; 87522; 87902

== ENCOUNTER → 2020-06-15 13:01 | Outpatient (CLI) | payer MEDICARE, MEDICAID, SELFPAY ==
--- NOTE | 2020-06-15 13:06 | US_ITS ---
STUDY: RENAL ULTRASOUND - COMPLETE REASON FOR EXAM: Female, 50 years old. HYPERTENSION TECHNIQUE: Ultrasound evaluation of the kidneys was performed with real-time and static lin-scale imaging. COMPARISON: None. FINDINGS: RIGHT KIDNEY: Normal location of the right kidney, which is normal in size. The right kidney measures 9.6 cm x 5 cm x 4.8 cm. There is a normal cortex of the right kidney. The renal cortex measures 1.3 cm. There is no right renal mass or cyst. There are no right renal calculi. There is no right hydronephrosis. DISTAL RIGHT URETER: There is non-visualization of the distal right ureter. There is no demonstrated right ureterovesical junction calculus. There is no demonstrated right ureteral jet. LEFT KIDNEY: Normal location of the left kidney, which is normal in size. The left kidney measures 10 cm x 4.8 cm x 5 cm. There is a normal cortex of the left kidney. The renal cortex measures 1.4 cm. There is no left renal mass or cyst. There are no left renal calculi. There is no left hydronephrosis. DISTAL LEFT URETER: There is non-visualization of the distal left ureter. There is no demonstrated left ureterovesical junction calculus. There is no demonstrated left ureteral jet. BLADDER: The distended urinary bladder has a volume of 116 ml. There is a normal wall thickness of the distended urinary bladder. There is no demonstrated mass within the urinary bladder. There are no demonstrated bladder calculi. US/Kidney and Bladder IMPRESSION: Normal ultrasound of the kidneys and urinary bladder. Electronically Signed: Marcelo Montez MD at 14:31 EDT , Service support ,
== END ==
PROVIDERS: PCP Family Medicine; Referring Provider Family Medicine; Visit Provider Family Medicine
DX: I10 Essential (primary) hypertension (principal)
CPT/HCPCS: 76770

== ENCOUNTER → 2020-06-29 08:52 | Outpatient (CLI) | payer MEDICARE, MEDICAID, SELFPAY ==
[2020-06-15 14:01] VITALS: BMI 32.4
--- NOTE | 2020-06-29 08:56 | RDU_ITS ---
Reason For Study: HTN Right Renal Artery Left Renal Artery Right renal artery ostium 106/38 Left renal artery ostium 148/58 RSV/EDV. PSV/EDV. Right renal artery proximal 115/31 Left renal artery proximal PSV/EDV PSV/EDV. 146/56 . Right renal artery mid 156/49 Left renal artery mid 135/49 PSV/EDV. PSV/EDV . Right renal artery distal 143/52 Left renal artery distal 111/46 PSV/EDV. PSV/EDV. Right Renal Parenchyma Left Renal Parenchyma Upper Pole Medula 57/21 PSV/EDV. Left upper pole medulla 43/17 Right upper pole medulla EDR 0.37 . PSV/EDV . Right upper pole medulla R.I. Left upper pole medulla EDR 0.40 . 0.64 . Left upper pole medulla R.I. 0.60 . Upper Tang Cortx 20/8 PSV/EDV. UP Cortex 27/13 PSV/EDV. Right upper pole cortex EDR 0.40 . Left upper pole cortex EDR 0.48 . Right upper pole cortex R.I. 0.61 . Left upper pole cortex R.I. 0.54 . Right lower Pole medulla 34/13 Left lower Pole medulla 56/20 PSV/EDV . PSV/EDV . Right lower pole medulla EDR 0.38 . Left lower pole medulla EDR 0.36 . Right lower pole medulla R.I. Left lower pole medulla R.I. 0.64 . 0.61 . Lower Pole Cortx 29/14 PSV/EDV. Lower Pole Cortex 21/9 PSV/EDV. Left lower pole cortex EDR 0.48 . Right lower pole cortex EDR 0.43 . Left lower pole cortex R.I. 0.53 . Right lower pole cortex R.I. 0.58 . Left Renal Hilar Right Renal Hilar LT Hilar avg 86/25 PSV/EDV . Right Hilar avg 84/31 PSV/EDV. Left hilar acceleration time 30 Right hilar acceleration time 40 m/sec. m/sec. Left Renal Dimensions Right Renal Dimensions Left kidney size 9.95 cm . Right kidney size 9.93 cm . Left cortical dimension 1.39 cm . Right cortical dimension 1.71 cm . Aorta Proximal abdominal aorta 1.36cm x 1.37 cm . Proximal abdominal aorta peak systolic velocity is 104 cm/sec . Distal abdominal aorta 1.55cm x 1.64 cm . Distal abdominal aorta peak systolic velocity is 123 cm/sec . VL/Renal Artery Duplex Ultrasound Interpretation Summary Maximal aortic diameter in the distal abdominal aorta at 1.55 x 1.64 cm in diam eter. Distal abdominal aortic velocity elevated at 123 cm/s peak systolic flow which invalidates the renal artery to aortic ratio Less than 60% stenosis bilateral renal arteries Right renal length 9.93 cm, normal range Left renal length 9.95 cm, normal range Ordering Physician: Hayder Tate Referring Physician: Hayder Tate Performed By: Jessa Hutchison, MARIE, RVT
== END ==
PROVIDERS: PCP Family Medicine; Referring Provider Family Medicine; Visit Provider Family Medicine
DX: I10 Essential (primary) hypertension (principal)
CPT/HCPCS: 93975

== ENCOUNTER → 2020-07-17 06:56 | Outpatient (CLI) | payer MEDICARE, MEDICAID, SELFPAY ==
[2020-06-15 14:01] VITALS: BMI 32.4
--- NOTE | 2020-07-17 07:04 | ECHOCS_ITS ---
Reason For Study: Dyspnea/SOB Procedure This was a 2D Doppler, Color Flow transthoracic echocardiogram. The study was technically difficult. Contrast injection was performed. Exam performed in department. Left Ventricle Normal LV size. Mid cavitary false tendon noted. Left ventricular systolic function is normal. The estimated ejection fraction is 60 %. No evidence for diastolic dysfunction. No regional wall motion abnormalities noted. Right Ventricle Normal RV size. Normal systolic function. Atria Normal left atrium. Normal right atrium. No doppler evidence for ASD. Mitral Valve There is no mitral annular calcification. Normal mitral valve. Trivial mitral valve insufficiency. Tricuspid Valve Normal tricuspid valve. Trivial tricuspid valve insufficiency. Unable to estimate RV systolic pressure/pulmonary artery pressure due to technically difficult study. Aortic Valve The aortic valve is not well visualized. Pulmonic Valve The pulmonic valve is not well visualized. Great Vessels Normal sized aortic root. Pericardium/Pleural No pericardial effusion. Medication 22 gauge I.V. with prn adaptor inserted into right arm. Diluted definity 2ml given slow IV push to enhance endocardial definition. MMode/2D Measurements & Calculations LVIDd: 4.2 cm IVSd: 1.0 cm Ao root diam: 3.0 cm LVIDs: 2.5 cm LVPWd: 0.90 cm LA dimension: 3.5 cm FS: 39.9 % LAV(MOD-bp): 30.5 ml LA A4 area: 12.4 cm2 RA A4 area: 8.5 cm2 LAV(MOD-bp) Indexed: 15.8 ml/m2 LAV(MOD-sp2): 27.2 ml LAV(MOD-sp4): 29.9 ml Time Measurements MV dec time: 0.17 sec Doppler Measurements & Calculations MV E max burton: 92.9 cm/sec Lat Peak E' Burton: 11.1 cm/sec Med Peak E' Burton: 10.1 cm/sec MV A max burton: 81.2 cm/sec E/E' lat: 8.4 E/E' med: 9.2 MV E/A: 1.1 MV V2 max: 106.2 cm/sec MV P1/2t max burton: 106.2 cm/sec Ao V2 max: 122.3 cm/sec MV max P.5 mmHg MV P1/2t: 84.8 msec Ao max P.0 mmHg MV V2 mean: 62.3 cm/sec MV dec slope: 366.7 cm/sec2 MV mean P.8 mmHg MV V2 VTI: 24.0 cm MVA(P1/2t): 2.6 cm2 LV V1 max: 109.6 cm/sec PA V2 max: 83.8 cm/sec LV V1 max P.8 mmHg ECHO/Echo Complete W/ Contrast Interpretation Summary The study was technically difficult. Contrast injection was performed. Left ventricular systolic function is normal. The estimated ejection fraction is 60 %. Mid cavitary false tendon noted. Trivial mitral valve insufficiency. Trivial tricuspid valve insufficiency. Unable to estimate RV systolic pressure/pulmonary artery pressure due to techni jaimee difficult study. No evidence for diastolic dysfunction. Ordering Physician: George Ordaz Referring Physician: Hayder Tate Performed By: Claudy Prince RCS
--- NOTE | 2020-07-17 08:55 | STRESSREP_ITS ---
Stress Test Report Date: 07-17-2020 Procedure: Exercise tolerance test/imaging study Indications: Shortness of breath/dyspnea on exertion Consent: Per the patient Procedure: The patient exercised on a Ellis protocol for 6 minutes completing Stage II achieving a peak heart rate of 164 bpm (95% predicted maximal heart rate) with a peak blood pressure 186/80 mmHg and a peak MET capacity of 7 METs. The baseline ECG demonstrated normal sinus rhythm. The peak exercise ECG demonstrated no obvious ECG changes. There were no cardiac dysrhythmias pretest, during exercise, or recovery. The functional capacity was considered average. There was right shoulder discomfort and left leg discomfort. The examination was discontinued secondary to dyspnea and leg discomfort. Impression: 1. Technically adequate (percent predicted maximal heart rate greater than 85%) exercise tolerance test 2. Peak exercise ECG with no obvious ECG changes 3. There were no cardiac dysrhythmias pretest, during exercise, or recovery 4. Nuclear images pending Myocardial perfusion imaging study: Technique: The patient was injected with 11.2 mCi of technetium 99m Cardiolite and subsequently rest SPECT Cardiolite nuclear imaging was obtained in the horizontal long, vertical long, and short axis views. The patient exercised on a Ellis protocol for 6 minutes completing Stage II achieving a peak heart rate of 164 bpm (95% predicted maximal heart rate) with a peak blood pressure 186/80 mmHg and a peak MET capacity of 7 METs. The patient was injected with 32.9 mCi of technetium 99m Cardiolite and subsequently stress SPECT Cardiolite nuclear imaging was obtained in the horizontal long, vertical long, and short axis views. A gated Cardiolite study at peak stress was obtained. Interpretation: Rest and stress SPECT Cardiolite nuclear imaging status post realignment, normalization, and attenuation correction, demonstrates the appearance of relative uniform tracer uptake and myocardial perfusion appearing within normal limits. There is end systolic thickening and brightening. The gated Cardiolite study demonstrates myocardial thickening and inward wall motion. The reported LVEF is 73%. Impression: 1. Rest and stress SPECT Cardiolite nuclear imaging demonstrate relative uniform tracer uptake and myocardial perfusion appearing within normal limits. 2. The gated Cardiolite study reports an LVEF of 73%. This note was generated with [employer] software. It may contain incorrect words, spelling, and punctuation that were not noted in checking the note before signing.
== END ==
PROVIDERS: PCP Family Medicine; Referring Provider Internal Medicine Cardiovascular Disease; Visit Provider Internal Medicine Cardiovascular Disease
DX: R06.00 Dyspnea, unspecified (principal)
CPT/HCPCS: 78452; 93017; 93306; A9500; Q9957; A4216; C8929

== ENCOUNTER → 2020-08-10 09:54 | Outpatient (CLI) | payer MEDICARE, MEDICAID, SELFPAY ==
[2020-06-15 14:01] VITALS: BMI 32.4
[2020-08-10 12:24] LABS: Absolute Lymphocyte Count 2.44 X10^3/uL (0.83-4.51); Absolute Neutrophil Count 8.3 X10^3/uL (2.0-7.7); Basophil# 0.03 X10^3/uL; Basophil% 0.3 % (0-1); Eosinophil# 0.12 X10^3/uL; Hematocrit 41.7 % (37-47); Hemoglobin 13.6 g/dL (12.0-15.0); Lymphocyte # 2.44 X10^3/ul (0.83-4.51); Mean Corp Hgb Conc 32.6 g/dL (32-36); Mean Platelet Vol. 9.6 fl (6.2-12.0); Monocyte# 0.61 X10^3/uL; Monocyte% 5.2 % (0-10); NRBC Flagged by Analyzer 0 % (0-5); Neutrophil # 8.32 X10^3/uL (2.7-7.7); Neutrophil % 71.6 % (47-70); Platelet Count 418 K/mm3 (150-450); RBC Distribution Width CV 11.8 % (11.6-14.6); RBC Distribution Width SD 40.9 fl (35.1-43.9); Red Blood Count 4.39 M/mm3 (4.2-5.4); White Blood Count 11.6 K/mm3 (4.4-11.0)
[2020-08-10 12:27] LABS: Urine Chloride 152 mmol/L (Not Establ.); Urine Sodium 159 mmol/L (Not Establ.)
[2020-08-10 12:39] LABS: Anion Gap 9 (5-15); BUN 17 mg/dL (7-18); BUN/Creat Ratio 22.8 RATIO (10-20); Calcium,Total 9.3 mg/dL (8.5-10.1); Chloride 100 mmol/L (98-107); Creatinine, Serum 0.74 mg/dL (0.55-1.02); EST Glomerular Filtration Rate 88 mL/min (>60); Est Glom Filt Rate - Afr Amer 107 mL/min (>60); Ferritin 513 ng/mL (8-252); Glucose 92 mg/dL (74-106); Iron 105 ug/dL (50-170); Iron Binding Capacity,Total 348 ug/dL (250-450); Potassium 3.1 mmol/L (3.5-5.1); Sodium Level 139 mmol/L (136-145)
== END ==
PROVIDERS: PCP Family Medicine; Referring Provider Family Medicine; Visit Provider Family Medicine
DX: E87.6 Hypokalemia (principal); Z86.2 Personal history of diseases of the blood and blood-forming organs and certain disorders involving the immune mechanism
CPT/HCPCS: 36415; 80048; 82088; 82436; 82728; 83540; 83550; 84133; 84244; 84300; 85025

== ENCOUNTER 2020-09-14 14:50 | Emergency (ER) | payer MEDICARE, MEDICAID, SELFPAY ==
[2020-06-15 14:01] VITALS: BMI 32.4
[2020-09-14 14:51] VITALS: BP 125/76; PULSE 96; RESP 16; TEMP 35.9; O2SAT 97; BMI 30.9
--- NOTE | 2020-09-14 15:11 | EDS_ITS ---
HPI History of Present Illness Chief Complaint: Other, Pain/Inj Narrative Narrative: 50-year-old female presenting with neck pain. She states he has had neck pain most of her life. She has been seen by her primary care physician who prescribed her muscle relaxers which did not seem to help. She denies any new trauma. She states her partner saw a bruise on the back of her head today which is central. It has since turned much communication spec. She describes pain that radiates into the trapezius and down her back and up the side of her neck. She states has had imaging before. Patient also states she has seen a chiropractor. [facility] Medical History Chest pain Dyspnea Essential hypertension OSCAR (obstructive sleep apnea) OSCAR on CPAP RLS (restless legs syndrome) Home Medications alprazolam 1 tablet PO BID PRN PRN 10/15/17 [History Last Taken Unknown] loratadine 10 mg tablet 10 mg PO DAILY PRN 06/14/20 [History Last Taken Unknown] magnesium citrate 100 mg tablet 100 mg PO DAILY 06/14/20 [History Last Taken Unknown] multivitamin 1 tablet PO DAILY 06/14/20 [History Last Taken Unknown] omeprazole 20 mg tablet,delayed release 40 mg PO BID tablet 06/14/20 [History Last Taken Unknown] triamcinolone acetonide 55 mcg nasal spray aerosol 2 spray INTRANASAL DAILY 06/14/20 [History Last Taken Unknown] vitamin B complex 1 tablet PO DAILY 06/14/20 [History Last Taken Unknown] ferrous sulfate 325 mg (65 mg iron) tablet 650 mg PO DAILY tablet 06/15/20 [History Last Taken Unknown] prednisone 50 mg PO DAILY #5 tab 09/14/20 [Rx Last Taken Unknown] tizanidine 4 mg PO Q8H PRN #20 tab 09/14/20 [Rx Last Taken Unknown] Allergy/AdvReac Type Severity Reaction Status Date / Time bee venom protein (honey bee) Allergy Anaphylaxis Verified 09/14/20 14:54 mushroom Allergy Anaphylaxis Verified 09/14/20 14:54 Penicillins Allergy Other Verified 09/14/20 14:54 Sulfa (Sulfonamide Allergy Other Verified 09/14/20 14:54 Antibiotics) gabapentin AdvReac Unknown Verified 09/14/20 14:54 VITAMIN C Allergy Hives Uncoded 06/15/20 14:02 Surgical History History of surgery on upper extremity History of tonsillectomy and adenoidectomy Social History adopted: Yes Smoking Status: Former smoker alcohol intake: current details: occasional substance use type: does not use caffeine: No ROS ROS ED Constitutional Constitutional ED: Denies chills or fever(s) Eyes Eyes: Denies blurry vision or change in vision ENT ENT ED: Denies rhinorrhea or sore throat Cardiovascular Cardiovascular: Denies chest pain, palpitations or racing heartbeat Respiratory/Chest Respiratory/Chest: Denies cough, dyspnea or sputum Gastrointestinal Gastrointestinal: Denies abdominal pain, nausea or vomiting Genitourinary Genitourinary ED: Denies dysuria or hematuria Musculoskeletal Musculoskeletal: Reports neck pain; Denies arthralgias Integumentary Denies abscess or rash Neurologic Neurologic: Reports paresthesias RUE; Denies headache(s) or weakness EXAM Physical Exam Const Vital Signs: 09/14/20 14:51 09/14/20 15:04 Temperature 96.7 F L Temperature Source Temporal Pulse Rate 96 Respiratory Rate 16 Respiratory Effort Normal Non-Labored Blood Pressure 125/76 H Blood Pressure Mean 92 Pulse Ox 97 Oxygen Delivery Method Room Air Positive well nourished General Appearance ED: NAD HEENT Reports normocephalic atraumatic Eyes PERRL and EOMs intact bilaterally Neck full ROM Neck Narrative: Tenderness palpation right cervical paraspinal musculature. Pain increased with head turning to the left. Please identify any bruising. No midline spinal deformity or step-off. Resp normal respiratory effort and clear to auscultation bilaterally Cardio regular rhythm Rate: regular rate Neuro oriented x3 Sensorium / Orientation: alert Psych mental status grossly normal and thought process normal Skin no rashes or lesions noted and no wounds MDM MDM MDM Narrative Medical decision making narrative: Patient presenting with symptoms of cervical radiculopathy which she has had before. She seen a chiropractor in her primary care physician. I do not believe she needs any emergent imaging today. I counseled her she should follow-up with her primary care physician and get into physical therapy. She will be started on Zanaflex and prednisone. Patient stable for discharge at this time. Impression: 1. Cervical radiculopathy Discharge Plan Triage Chief Complaint: Other, Pain/Inj ED Provider: Liam Maurer Dx/Rx/DC Orders Instructions: ED Radiculopathy, Cervical Prescriptions: New prednisone 50 mg tablet 50 mg PO DAILY Qty: 5 RF: 0 tizanidine 4 mg tablet 4 mg PO Q8H PRN (Reason: muscle spasticity) Qty: 20 RF: 0 No Action alprazolam 1 mg tablet 1 tablet PO BID PRN PRN (Reason: Anxiety) RF: 0 loratadine 10 mg tablet 10 mg PO DAILY PRN (Reason: allergy symptoms) RF: 0 magnesium citrate 100 mg tablet 100 mg PO DAILY RF: 0 multivitamin Tablet 1 tablet PO DAILY RF: 0 omeprazole 20 mg tablet,delayed release (DR/EC) 40 mg PO BID RF: 0 vitamin B complex Tablet 1 tablet PO DAILY RF: 0 triamcinolone acetonide [Children's Nasacort] 55 mcg aerosol,spray 2 spray INTRANASAL DAILY RF: 0 ferrous sulfate 325 mg (65 mg iron) tablet 650 mg PO DAILY RF: 0 Primary Care Provider: Hayder Tate Referrals: Hayder Tate MD [Primary Care Provider] - Disposition Disposition: Home, Self Care
== END 2020-09-14 15:28 | disposition home or self-care (01) ==
LOC: ED 15:22
PROVIDERS: Emergency Provider Student in an Organized Health Care Education/Training Program; PCP Family Medicine
DX: M54.12 Radiculopathy, cervical region (principal); Z87.891 Personal history of nicotine dependence; G47.33 Obstructive sleep apnea (adult) (pediatric); I10 Essential (primary) hypertension; Z79.52 Long term (current) use of systemic steroids; Z79.899 Other long term (current) drug therapy
CPT/HCPCS: 99282

== ENCOUNTER → 2020-09-18 15:57 | Outpatient (CLI) | payer MEDICARE, MEDICAID, SELFPAY ==
[2020-09-17 14:43] VITALS: BMI 30.9
[2020-09-18 18:14] LABS: AST(SGOT) 44 U/L (15-37); Alanine Aminotransfer ALT/SGPT 108 U/L (13-56); Albumin, Serum 3.9 g/dL (3.2-5.0); Alkaline Phosphatase 104 U/L (45-117); Anion Gap 9 (5-15); BUN 18 mg/dL (7-18); BUN/Creat Ratio 19.1 RATIO (10-20); Calcium,Total 9.7 mg/dL (8.5-10.1); Chloride 102 mmol/L (98-107); Cholesterol 315 mg/dL (200); Creatinine, Serum 0.94 mg/dL (0.55-1.02); EST Glomerular Filtration Rate 67 mL/min (>60); Est Glom Filt Rate - Afr Amer 81 mL/min (>60); Globulin 3.9 g/dL (2.2-4.2); Glucose 128 mg/dL (74-106); High Density Lipoprotein 46 mg/dL; Potassium 3.6 mmol/L (3.5-5.1); Protein, Total 7.8 g/dL (6.4-8.2); Sodium Level 139 mmol/L (136-145); Triglycerides 693 mg/dL
== END ==
PROVIDERS: PCP Family Medicine; Visit Provider Family Medicine
DX: E78.1 Pure hyperglyceridemia (principal); E87.6 Hypokalemia
CPT/HCPCS: 36415; 80053; 80061

== ENCOUNTER → 2020-11-09 15:04 | Outpatient (CLI) | payer MEDICARE, MEDICAID, SELFPAY ==
[2020-11-09 17:29] LABS: Absolute Lymphocyte Count 1.83 X10^3/uL (0.83-4.51); Absolute Neutrophil Count 7.3 X10^3/uL (2.0-7.7); Basophil# 0.06 X10^3/uL; Basophil% 0.6 % (0-1); Eosinophil# 0.18 X10^3/uL; Eosinophils% 1.8 % (0-5); Hematocrit 41.4 % (37-47); Hemoglobin 13.5 g/dL (12.0-15.0); Lymphocyte # 1.83 X10^3/ul (0.83-4.51); Lymphocyte % 18.3 % (19-41); Mean Corp Hgb Conc 32.6 g/dL (32-36); Mean Corpuscular Hgb 31.3 pg (27.0-32.0); Mean Corpuscular Volume 95.8 fL (81-99); Mean Platelet Vol. 9.3 fl (6.2-12.0); Monocyte# 0.66 X10^3/uL; Monocyte% 6.6 % (0-10); NRBC Flagged by Analyzer 0 % (0-5); Neutrophil # 7.25 X10^3/uL (2.7-7.7); Neutrophil % 72.5 % (47-70); Platelet Count 481 K/mm3 (150-450); RBC Distribution Width CV 12.7 % (11.6-14.6); Red Blood Count 4.32 M/mm3 (4.2-5.4)
[2020-11-09 17:59] LABS: ALB/GLOB Ratio 0.9 RATIO (0.9-2.4); AST(SGOT) 32 U/L (15-37); Alanine Aminotransfer ALT/SGPT 85 U/L (13-56); Albumin, Serum 3.6 g/dL (3.2-5.0); Alkaline Phosphatase 93 U/L (45-117); Anion Gap 4 (5-15); BUN 12 mg/dL (7-18); BUN/Creat Ratio 16.2 RATIO (10-20); Calcium,Total 9.1 mg/dL (8.5-10.1); Chloride 106 mmol/L (98-107); Cholesterol 289 mg/dL (200); Creatinine, Serum 0.74 mg/dL (0.55-1.02); EST Glomerular Filtration Rate 89 mL/min (>60); Est Glom Filt Rate - Afr Amer 107 mL/min (>60); Glucose 109 mg/dL (74-106); High Density Lipoprotein 48 mg/dL; Potassium 3.8 mmol/L (3.5-5.1); Protein, Total 7.6 g/dL (6.4-8.2); Sodium Level 139 mmol/L (136-145); T4 Free Direct 0.74 ng/dL (0.76-1.46); Triglycerides 501 mg/dL
== END ==
PROVIDERS: PCP Family Medicine; Referring Provider Family Medicine; Visit Provider Family Medicine
DX: I10 Essential (primary) hypertension (principal); E78.1 Pure hyperglyceridemia; E03.8 Other specified hypothyroidism
CPT/HCPCS: 36415; 80053; 80061; 84439; 84443; 85025

== ENCOUNTER 2020-12-11 10:46 | Day surgery (SDC) | payer MEDICARE, MEDICAID, SELFPAY ==
[2020-12-11] VITALS (7 sets, daily range): BP systolic 113–119; BP diastolic 81–86; PULSE 78–90; RESP 18; TEMP 36.2–36.4; O2SAT 96–99; BMI 31.3
--- NOTE | 2020-12-11 12:00 | COLBX_PTH ---
PATIENT: JEREMY MONROE LOC: EN U#:[id number] AGE/SX: 50/F ROOM: RE12/11/[address]: Dr. Ag Riley DO : 1970 BED: DIS: 12/11/2020 SPEC #: [id number] RECD: 12/11/20 15:51 STATUS: NAYE REDavid #: [id number] MICAELA: 12/11/20 12:[address]: Ag Riley DEPT: SURGICAL PATHOLOGY RECD BY: aMrta Lebron ENTERED: 12/12/20 08:15 SP TYPE: COLON BX ZARIA DR: Dr. Hayder Tate MD Tissues: A - Duodenum, NOS B - Ileum, NOS C - COLON BIOPSY Procedures: Surgery Specimen Level IV HEADER OPERATION: [place] DIAGNOSIS: Abdominal pain, diarrhea TISSUE SUBMITTED: A ? Duodenum biopsy, B ? Terminal ileum biopsy, C ? Random colonic biopsy MICROSCOPIC DIAGNOSIS A. Duodenum, biopsy: Fragments of duodenal mucosa, no pathologic diagnosis. B. Terminal ileum, biopsy: Fragments of small intestinal mucosa, no pathologic diagnosis. C. Colon, random biopsy: Fragments of colonic mucosa, no pathologic diagnosis. RODNEY:beatrice 12/13/2020 MICROSCOPIC DESCRIPTION Slides are reviewed. GROSS DESCRIPTION A - Received in fixative is one container labeled with the patient's name and designated duodenum biopsy. The specimen consists of multiple irregular fragments of light kapadia soft tissue that in aggregate measure 1 x 0.3 x 0.1 cm. The specimen is totally submitted in one cassette. B - Received in fixative is one container labeled with the patient's name and designated terminal ileum biopsy. The specimen consists of multiple irregular fragments of light kapadia soft tissue that in aggregate measure 1 x 0.4 x 0.1 cm. The specimen is totally submitted in one cassette. C - Received in fixative is one container labeled with the patient's name and designated random colon biopsy. The specimen consists of multiple irregular fragments of light kapadia soft tissue that in aggregate measure 2.5 x 1 x 0.1 cm. The specimen is totally submitted in one cassette. / RODNEY:beatrice 02/11/21 TC:4 CPT: 38394 x3
[2020-12-11] MEDS: Lactated Ringers 1,000 ML 100 ML IV (12:01)
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
--- NOTE | 2020-12-11 12:50 | OP.EGD_ITS ---
Patient Name: Rita Cordero Procedure Date: 12/11/2020 11:54 AM Date of : 1970 Age: 50 Procedure: Upper GI endoscopy Indications: Generalized abdominal pain, Functional Dyspepsia Providers: Ag Riley DO Medicines: Propofol per Anesthesia Patient Profile: This is a 50 year old female. Refer to note in patient chart for documentation of history and physical. Patient has symptoms of acute global abdominal pain. She is status post EGD for ulcer treatment five years ago. Complications: No immediate complications. Procedure: Pre-Anesthesia Assessment: - Prior to the procedure, a History and Physical was performed, and patient medications and allergies were reviewed. The patient is competent. The risks and benefits of the procedure and the sedation options and risks were discussed with the patient. All questions were answered and informed consent was obtained. Patient identification and proposed procedure were verified by the physician in the pre-procedure area. Mental Status Examination: alert and oriented. Airway Examination: normal oropharyngeal airway and neck mobility. Respiratory Examination: clear to auscultation. CV Examination: normal. Prophylactic Antibiotics: The patient does not require prophylactic antibiotics. Prior Anticoagulants: The patient has taken no previous anticoagulant or antiplatelet agents. ASA Grade Assessment: II - A patient with mild systemic disease. After reviewing the risks and benefits, the patient was deemed in satisfactory condition to undergo the procedure. The anesthesia plan was to use moderate sedation / analgesia (conscious sedation). Immediately prior to administration of medications, the patient was re-assessed for adequacy to receive sedatives. The heart rate, respiratory rate, oxygen saturations, blood pressure, adequacy of pulmonary ventilation, and response to care were monitored throughout the procedure. The physical status of the patient was re-assessed after the procedure. After obtaining informed consent, the endoscope was passed under direct vision. Throughout the procedure, the patient's blood pressure, pulse, and oxygen saturations were monitored continuously. The Endoscope was introduced through the mouth, and advanced to the second part of duodenum. The upper GI endoscopy was accomplished without difficulty. The patient tolerated the procedure well. Moderate Sedation: Moderate (conscious) sedation was administered by the endoscopy nurse and supervised by the endoscopist. The patient's oxygen saturation, heart rate, blood pressure and response to care were monitored. Total physician intraservice time was 14 minutes. Scope In: 12:23:20 PM Scope Out: 12:26:53 PM Total Procedure Duration Time 0 hours 3 minutes 33 seconds Findings: No other significant abnormalities were identified in a careful examination of the esophagus. No other significant abnormalities were identified in a careful examination of the stomach. Patchy mildly erythematous mucosa without active bleeding and with no stigmata of bleeding was found in the second portion of the duodenum. Biopsies were taken with a cold forceps for histology. Verification of patient identification for the specimen was done. Estimated blood loss was minimal. Impression: - Erythematous duodenopathy. Biopsied. Recommendation: - Discharge patient to home. - Resume previous diet. - Continue present medications. - Await pathology results. - Repeat upper endoscopy in 1 year for surveillance. - Return to GI office in 2 weeks. Procedure Code(s): --- Professional --- 89136, Esophagogastroduodenoscopy, flexible, transoral; with biopsy, single or multiple G0500, Moderate sedation services provided by the same physician or other qualified health manager [employer] performing a gastrointestinal endoscopic service that sedation supports, requiring the presence of an independent trained observer to assist in the monitoring of the patient's level of consciousness and physiological status; initial 15 minutes of intra-service time; patient age 5 years or older (additional time may be reported with 94741, as appropriate) CPT copyright 2017 [employer]. All rights reserved. The codes documented in this report are preliminary and upon court crier review may be revised to meet current compliance requirements. Ag Riley DO 12/11/2020 12:50:06 PM This report has been signed electronically. Number of Addenda: 1 Note Initiated On: 12/11/2020 11:54 AM Addendum Number: 1 Addendum Date: 10/31/2021 4:31:23 PM MAC was used instead of moderate sedation for this patient. Ag Riley DO 10/31/2021 4:31:32 PM This report has been signed electronically.
--- NOTE | 2020-12-11 12:51 | OP.CCLET_ITS ---
10/31/2021 Hayder Tate [address] [place] [address] Re : Upper GI endoscopy procedure for Rita Cordero Dear Dr. Tate This procedure was performed on Friday, December 11, 2020. My impressions and recommendations are as follows: Impressions : - Erythematous duodenopathy. Biopsied. Recommendations : - Discharge patient to home. - Resume previous diet. - Continue present medications. - Await pathology results. - Repeat upper endoscopy in 1 year for surveillance. - Return to GI office in 2 weeks. My findings are described in the full procedure note, which is enclosed. If I can be of further assistance, please feel free to contact me at . Sincerely, Ag Riley, 12/11/2020 12:50:06 PM This report has been signed electronically.
--- NOTE | 2020-12-11 12:55 | OP.COLON_ITS ---
Patient Name: Rita Cordero Procedure Date: 12/11/2020 12:28 PM Date of : 1970 Age: 50 Procedure: Colonoscopy Indications: Chronic diarrhea Providers: Ag Riley DO Medicines: Propofol per Anesthesia Patient Profile: This is a 50 year old female. Refer to note in patient chart for documentation of history and physical. Patient has symptoms of acute global abdominal pain. She is status post EGD for ulcer treatment five years ago. Last Colonoscopy: 5 years ago. Complications: No immediate complications. Procedure: Pre-Anesthesia Assessment: - Prior to the procedure, a History and Physical was performed, and patient medications and allergies were reviewed. The patient is competent. The risks and benefits of the procedure and the sedation options and risks were discussed with the patient. All questions were answered and informed consent was obtained. Patient identification and proposed procedure were verified by the physician in the pre-procedure area. Mental Status Examination: alert and oriented. Airway Examination: normal oropharyngeal airway and neck mobility. Respiratory Examination: clear to auscultation. CV Examination: normal. Prophylactic Antibiotics: The patient does not require prophylactic antibiotics. Prior Anticoagulants: The patient has taken no previous anticoagulant or antiplatelet agents. ASA Grade Assessment: II - A patient with mild systemic disease. After reviewing the risks and benefits, the patient was deemed in satisfactory condition to undergo the procedure. The anesthesia plan was to use moderate sedation / analgesia (conscious sedation). Immediately prior to administration of medications, the patient was re-assessed for adequacy to receive sedatives. The heart rate, respiratory rate, oxygen saturations, blood pressure, adequacy of pulmonary ventilation, and response to care were monitored throughout the procedure. The physical status of the patient was re-assessed after the procedure. After I obtained informed consent, the scope was passed under direct vision. Throughout the procedure, the patient's blood pressure, pulse, and oxygen saturations were monitored continuously. The Colonoscope was introduced through the anus and advanced to the terminal ileum. The colonoscopy was performed without difficulty. The patient tolerated the procedure well. The quality of the bowel preparation was good. Moderate Sedation: Moderate (conscious) sedation was personally administered by an anesthesia professional. The following parameters were monitored: oxygen saturation, heart rate, blood pressure, and response to care. Total physician intraservice time was 15 minutes. Scope In: 12:30:10 PM Scope Withdrawal Time 0 hours 11 minutes 1 second Scope Out: 12:44:22 PM Total Procedure Duration Time 0 hours 14 minutes 12 seconds Findings: The perianal and digital rectal examinations were normal. There was mild spasm in the sigmoid colon. Biopsies for histology were taken with a cold forceps from the ascending colon, right colon, left colon, transverse colon, right transverse colon, left transverse colon, descending colon, sigmoid colon and rectum for evaluation of microscopic colitis. Verification of patient identification for the specimen was done. Estimated blood loss was minimal. The proximal ileum appeared normal. This was biopsied with a cold forceps for histology. Verification of patient identification for the specimen was done. Estimated blood loss was minimal. The exam was otherwise without abnormality on direct and retroflexion views. Impression: - Mild colonic spasm consistent with irritable bowel syndrome. Biopsied. - The examined portion of the ileum was normal. Biopsied. - The examination was otherwise normal on direct and retroflexion views. Recommendation: - Discharge patient to home. - Resume previous diet. - Continue present medications. - Await pathology results. - Repeat colonoscopy in 5 years for surveillance. - Return to GI office in 1 week. Procedure Code(s): --- Professional --- 62465, Colonoscopy, flexible; with biopsy, single or multiple CPT copyright 2017 [employer]. All rights reserved. The codes documented in this report are preliminary and upon claims director review may be revised to meet current compliance requirements. Ag Riley DO 12/11/2020 12:55:07 PM This report has been signed electronically. Number of Addenda: 1 Note Initiated On: 12/11/2020 12:28 PM Addendum Number: 1 Addendum Date: 10/31/2021 4:31:42 PM MAC was used instead of moderate sedation for this patient. Ag Riley DO 10/31/2021 4:31:49 PM This report has been signed electronically.
--- NOTE | 2020-12-11 12:56 | OP.CCLET_ITS ---
10/31/2021 Hayder Tate [address] [place] [address] Re : Colonoscopy procedure for Rita Cordero Dear Dr. Tate This procedure was performed on Friday, December 11, 2020. My impressions and recommendations are as follows: Impressions : - Mild colonic spasm consistent with irritable bowel syndrome. Biopsied. - The examined portion of the ileum was normal. Biopsied. - The examination was otherwise normal on direct and retroflexion views. Recommendations : - Discharge patient to home. - Resume previous diet. - Continue present medications. - Await pathology results. - Repeat colonoscopy in 5 years for surveillance. - Return to GI office in 1 week. My findings are described in the full procedure note, which is enclosed. If I can be of further assistance, please feel free to contact me at . Sincerely, Ag Friend, 12/11/2020 12:55:07 PM This report has been signed electronically.
== END 2020-12-11 13:35 ==
LOC: EN 10:47 → AC 10:47
PROVIDERS: PCP Family Medicine; Referring Provider Family Medicine; Visit Provider Internal Medicine Gastroenterology
PROC: 0DJD8ZZ Inspection of Lower Intestinal Tract, Via Natural or Artificial Opening Endoscopic (ICD-10-PCS; CPT 45378; principal; 2020-12-11 11:55)
DX: K58.0 Irritable bowel syndrome with diarrhea (principal); R10.84 Generalized abdominal pain; K30 Functional dyspepsia; Z87.891 Personal history of nicotine dependence
CPT/HCPCS: 43239; 45380; 88305; J7120; J2405

== ENCOUNTER → 2021-02-26 12:08 | Outpatient (CLI) | payer MEDICARE, MEDICAID, SELFPAY | PROVIDERS: Visit Provider Family Medicine | DX: U07.1 COVID-19 (principal) | CPT/HCPCS: 87635; 87804; U0005; U0003 ==

== ENCOUNTER 2021-03-01 13:21 | Outpatient (CLI) | payer MEDICARE, MEDICAID, SELFPAY ==
[2021-03-01 13:37] VITALS: BP 136/87; PULSE 100; RESP 16; TEMP 36.9; O2SAT 98; BMI 30.7
[2021-03-01] MEDS: 0.9% Saline Lock 10 ML Syringe IV (13:41)
[2021-03-01 14:08] VITALS: BP 135/82; PULSE 95; RESP 16; TEMP 37.1; O2SAT 97
[2021-03-01 15:12] VITALS: BP 117/82; PULSE 98; RESP 16; TEMP 37.2; O2SAT 98
== END 2021-03-01 15:13 | disposition home or self-care (01) ==
LOC: MS3OUT 13:21 → MS3 13:22
PROVIDERS: Referring Provider Nurse Practitioner Acute Care; Visit Provider Nurse Practitioner Acute Care
DX: Z23 Encounter for immunization (principal); U07.1 COVID-19; E66.9 Obesity, unspecified; Z68.30 Body mass index [BMI] 30.0-30.9, adult
CPT/HCPCS: J7050; M0245; Q0245; A4216

== ENCOUNTER 2021-05-10 14:31 | Outpatient (CLI) | payer MEDICARE, MEDICAID, SELFPAY ==
[2021-05-10 17:34] LABS: Absolute Lymphocyte Count 2.67 X10^3/uL (0.83-4.51); Absolute Neutrophil Count 8.7 X10^3/uL (2.0-7.7); Basophil# 0.04 X10^3/uL; Basophil% 0.3 % (0-1); Eosinophil# 0.15 X10^3/uL; Eosinophils% 1.2 % (0-5); Hematocrit 40.1 % (37-47); Hemoglobin 13.1 g/dL (12.0-15.0); Lymphocyte # 2.67 X10^3/ul (0.83-4.51); Lymphocyte % 21.8 % (19-41); Mean Corp Hgb Conc 32.7 g/dL (32-36); Mean Platelet Vol. 9.2 fl (6.2-12.0); Monocyte# 0.66 X10^3/uL; Monocyte% 5.4 % (0-10); NRBC Flagged by Analyzer 0 % (0-5); Neutrophil # 8.67 X10^3/uL (2.7-7.7); Platelet Count 469 K/mm3 (150-450); RBC Distribution Width CV 12.3 % (11.6-14.6); RBC Distribution Width SD 42.5 fl (35.1-43.9); Red Blood Count 4.22 M/mm3 (4.2-5.4); White Blood Count 12.2 K/mm3 (4.4-11.0)
[2021-05-10 17:49] LABS: Vitamin D,25 Hydroxy 21.9 ng/mL
[2021-05-10 18:12] LABS: AST(SGOT) 21 U/L (15-37); Alanine Aminotransfer ALT/SGPT 47 U/L (13-56); Alkaline Phosphatase 114 U/L (45-117); Anion Gap 8 (5-15); BUN 16 mg/dL (7-18); BUN/Creat Ratio 21.4 RATIO (10-20); Calcium,Total 9.8 mg/dL (8.5-10.1); Chloride 103 mmol/L (98-107); Cholesterol 306 mg/dL (200); Creatinine, Serum 0.75 mg/dL (0.55-1.02); EST Glomerular Filtration Rate 88 mL/min (>60); Est Glom Filt Rate - Afr Amer 106 mL/min (>60); Ferritin 359 ng/mL (8-252); Globulin 4.2 g/dL (2.2-4.2); Glucose 91 mg/dL (74-106); High Density Lipoprotein 46 mg/dL; Iron 107 ug/dL (50-170); Iron Binding Capacity,Total 357 ug/dL (250-450); Potassium 3.9 mmol/L (3.5-5.1); Protein, Total 8.2 g/dL (6.4-8.2); Sodium Level 137 mmol/L (136-145); T4 Free Direct 0.83 ng/dL (0.76-1.46); Thyroid Stim Hormone (TSH) 2.89 uIU/mL (0.358-3.74); Triglycerides 520 mg/dL
[2021-05-13 19:07] LABS: HCV Quant. RNA PCR HCV Not Detected IU/mL (.)
== END 2021-05-10 23:59 | disposition home or self-care (01) ==
LOC: MFPLAB 14:37
PROVIDERS: PCP Family Medicine; Referring Provider Family Medicine; Visit Provider Family Medicine
DX: E55.9 Vitamin D deficiency, unspecified (principal); B18.2 Chronic viral hepatitis C; E03.8 Other specified hypothyroidism; E61.1 Iron deficiency; I10 Essential (primary) hypertension
CPT/HCPCS: 80053; 80061; 82306; 82728; 83540; 83550; 84439; 84443; 85025; 87522

== ENCOUNTER → 2021-11-20 | Outpatient (CLI) | payer MEDICARE, MEDICAID, SELFPAY ==
[2021-11-20 14:16] LABS: Bacteria 0 SEEN /hpf (None Seen); Mucous, Urine 0 SEEN /hpf (<or=2+); Red Blood Cells-Urine 0 SEEN /hpf (0-5); Squamous Epithelial Cells - UA 0 SEEN /hpf (5-10); White Blood Cells 0 SEEN /hpf (0-5)
[2021-11-20 17:39] LABS: Absolute Lymphocyte Count 2.75 X10^3/uL (0.83-4.51); Absolute Neutrophil Count 8.9 X10^3/uL (2.0-7.7); Basophil# 0.07 X10^3/uL; Basophil% 0.6 % (0-1); Eosinophil# 0.12 X10^3/uL; Hematocrit 42.4 % (37-47); Lymphocyte # 2.75 X10^3/ul (0.83-4.51); Lymphocyte % 21.8 % (19-41); Mean Platelet Vol. 9.6 fl (6.2-12.0); Monocyte# 0.76 X10^3/uL; NRBC Flagged by Analyzer 0 % (0-5); Neutrophil # 8.89 X10^3/uL (2.7-7.7); Neutrophil % 70.3 % (47-70); Platelet Count 449 K/mm3 (150-450); RBC Distribution Width CV 12.3 % (11.6-14.6); RBC Distribution Width SD 44.3 fl (35.1-43.9); Red Blood Count 4.37 M/mm3 (4.2-5.4); White Blood Count 12.6 K/mm3 (4.4-11.0)
[2021-11-20 17:40] LABS: Color, Urine Yellow (Yellow); Glucose, Dipstick Normal (Normal); Ketone-Dipstick Negative (Negative); Leukocyte Esterase-Dipstick Negative /ul (Negative); Nitrite-Dipstick Negative (Negative); Occult Blood-Urine Negative /ul (Negative); Protein-Dipstick Negative (Negative); Urine Bilirubin Dipstick Negative (Negative); Urine Clarity Clear (Clear); Urine Urobilinogen Normal (Normal)
[2021-11-20 17:48] LABS: Vitamin D,25 Hydroxy 34.1 ng/mL
[2021-11-20 18:00] LABS: Hemoglobin A1c 5.6 % (3.8-5.6)
[2021-11-20 18:17] LABS: ALB/GLOB Ratio 0.9 RATIO (0.9-2.4); AST(SGOT) 18 U/L (15-37); Alanine Aminotransfer ALT/SGPT 44 U/L (13-56); Albumin, Serum 3.8 g/dL (3.2-5.0); Alkaline Phosphatase 116 U/L (45-117); Anion Gap 7 (5-15); BUN 15 mg/dL (7-18); BUN/Creat Ratio 17.7 RATIO (10-20); Calcium,Total 9.6 mg/dL (8.5-10.1); Chloride 103 mmol/L (98-107); Cholesterol 267 mg/dL (200); Creatinine, Serum 0.85 mg/dL (0.55-1.02); EST Glomerular Filtration Rate 75 mL/min (>60); Est Glom Filt Rate - Afr Amer 91 mL/min (>60); Ferritin 267 ng/mL (8-252); Globulin 4.1 g/dL (2.2-4.2); Glucose 110 mg/dL (74-106); High Density Lipoprotein 47 mg/dL; Iron 109 ug/dL (50-170); Iron Binding Capacity,Total 347 ug/dL (250-450); Potassium 3.8 mmol/L (3.5-5.1); Protein, Total 7.9 g/dL (6.4-8.2); Sodium Level 138 mmol/L (136-145); T4 Free Direct 0.82 ng/dL (0.76-1.46); Thyroid Stim Hormone (TSH) 2.61 uIU/mL (0.358-3.74); Triglycerides 401 mg/dL
== END | disposition home or self-care (01) ==
PROVIDERS: PCP Family Medicine; Referring Provider Family Medicine; Visit Provider Family Medicine
DX: E55.9 Vitamin D deficiency, unspecified (principal); I10 Essential (primary) hypertension; E03.8 Other specified hypothyroidism; E61.1 Iron deficiency; R73.09 Other abnormal glucose
CPT/HCPCS: 36415; 80053; 80061; 81001; 82306; 82728; 83036; 83540; 83550; 84439; 84443; 85025

== ENCOUNTER → 2022-01-28 | Outpatient (CLI) | payer MEDICARE, MEDICAID, SELFPAY ==
[2022-01-28 16:26] LABS: Erythrocyte Sedimentation Rate 29 mm/hr (0-30)
[2022-01-28 16:46] LABS: LDH 198 U/L (84-246)
[2022-01-30 12:08] LABS: Anti-Centromere B Ab <0.2 AI (0.0-0.9); Anti-Chromatin <0.2 AI (0.0-0.9); Anti-Jo <0.2 AI (0.0-0.9); Anti-Scleroderma-70 AB <0.2 AI (0.0-0.9); RNP Ab <0.2 AI (0.0-0.9); SJOGREN'S Anti-SS-A test < 0.2 AI (0.0-0.9); SJOGREN'S Anti-SS-B test < 0.2 AI (0.0-0.9); Smith Ab <0.2 AI (0.0-0.9)
[2022-01-30 20:40] LABS: Anti-dsDNA Ab 1 IU/mL (0-9)
[2022-01-30 20:51] LABS: Endomysial Antibody IgA Negative (Negative); Immunoglobulin A 254 mg/dL (87-352); t-Transglutaminase IgA <2 U/mL (0-3)
[2022-02-04 02:07] LABS: Albumin 4.1 g/dL (2.9-4.4); Alpha-1-Globulins 0.2 g/dL (0.0-0.4); Alpha-2-Globulins 1.1 g/dL (0.4-1.0); Gamma Globulin 0.9 g/dL (0.4-1.8); Immunoglobulin A 248 mg/dL (87-352); Immunoglobulin E 8 IU/mL (6-495); Immunoglobulin G 834 mg/dL (586-1602); Immunoglobulin M 45 mg/dL (26-217); PROEL- TOTAL PROTEIN 7.3 g/dL (6.0-8.5)
[2022-02-04 11:16] LABS: Cytoplasmic Ab (C-ANCA) <1:20 titer (Neg:<1:20); Perinuclear Ab (P-ANCA) <1:20 titer (Neg:<1:20)
== END | disposition home or self-care (01) ==
LOC: LAB 15:37
PROVIDERS: PCP Family Medicine; Visit Provider Nurse Practitioner Adult Health
DX: R19.7 Diarrhea, unspecified (principal)
CPT/HCPCS: 36415; 82784; 82785; 83516; 83615; 84165; 85652; 86140; 86225; 86235; 86255; 86256; 86334

== ENCOUNTER → 2022-02-12 | Outpatient (CLI) | payer MEDICARE, MEDICAID, SELFPAY ==
--- NOTE | 2022-02-12 12:03 | NM_ITS ---
CLINICAL: 51-year-old female with history of abdominal bloating and early satiety. SEMI-SOLID PHASE 99m Tc SULFUR COLLOID GASTRIC EMPTYING STUDY COMPARISON: None available FINDINGS: The patient was administered 1.0 mCi of 99m Tc sulfur colloid mixed with oatmeal and consumed per os. Image acquisitions in the anterior-posterior projections were obtained for 60 minutes. There is prompt visualization of the stomach. There is no gastroesophageal reflux identified. The T ? emptying was calculated to be 35.86 minutes, (Normal: 12-56 minutes). NM/Gastric Emptying Study IMPRESSION: 1. NORMAL 99m Tc sulfur colloid semi-solid phase (oatmeal) gastric emptying imaging examination. A. There is normal and preserved semi-solid phase gastric emptying compared to normal controls. (Brandee et al, J Nucl Med Tech 38: 186, 2010). Electronically Signed: Praveen Cardenas, at 21:47 EST ,
== END | disposition home or self-care (01) ==
PROVIDERS: PCP Family Medicine; Referring Provider Nurse Practitioner Adult Health; Visit Provider Nurse Practitioner Adult Health
DX: R68.81 Early satiety (principal)
CPT/HCPCS: 78264; A9541

== ENCOUNTER → 2022-02-14 | Outpatient (CLI) | payer MEDICARE, MEDICAID, SELFPAY ==
--- NOTE | 2022-02-14 10:14 | US_ITS ---
STUDY: ABDOMINAL ULTRASOUND - ELASTOGRAPHY REASON FOR VISIT: Female, 51 years old. Hepatitis C. Hypertriglyceridemia. TECHNIQUE: Liver stiffness measurements were obtained on a fluid Operations RS 85 ultrasound machine using a CA 1-7 probe following the SRU guidelines. 3 measurements were obtained using a 2-D-SWE method. TheIQR/M was 21 % suggesting a quality data set. TECHNICAL QUALITY: Adequate. COMPARISON: Comparison is made with prior study done earlier today. FINDINGS: Liver: Fatty infiltration of the liver. Median liver stiffness measured 12.3 kPa. US/Elastography Parenchyma/Organ IMPRESSION: Liver stiffness measures 12.3 kPa compatible with F3-F4 (Moderate to severe liver fibrosis) Metavir score. Electronically Signed: Marcelo Montez MD at 14:45 EST ,
--- NOTE | 2022-02-14 10:14 | US_ITS ---
STUDY: ABDOMINAL ULTRASOUND - RIGHT UPPER QUADRANT REASON FOR VISIT: Female, 51 years old epigastric pain, hx hep C -- RUQ and for elastography TECHNIQUE: Ultrasound evaluation of the right upper quadrant was performed with real-time and static mcnair-scale imaging. TECHNICAL QUALITY: Adequate. COMPARISON: None. FINDINGS: Liver: The liver measures 15.4 cm. There is increased echogenicity consistent with fatty infiltration. The bile ducts are within normal limits. There is hepatic color flow. The direction of portal flow is hepatopetal. There is no demonstrated mass lesion. Gallbladder: Normal distended gallbladder. The gallbladder wall measures 2.0 mm. There is a negative sonographic Pérez''s sign. There is no pericholecystic fluid. There are no gallstones. Common Bile Duct (C.B.D.): The common bile duct measures 3.0 mm. Pancreas: Normal size of the head, body and tail of the pancreas. There is normal echogenicity of the pancreas. There is no demonstrated pancreatic mass or cyst. Right Kidney: Normal size of the right kidney. The right kidney measures 10 cm x 4.8 cm x 5.7 cm. Normal renal cortex. The right cortex measures 1.9 cm. There is no demonstrated renal mass or cyst. There is no right hydronephrosis. US/Abdomen Limited IMPRESSION: Fatty infiltration of the liver. Electronically Signed: Marcelo Montez MD at 14:43 EST ,
== END | disposition home or self-care (01) ==
LOC: US 10:13
PROVIDERS: PCP Family Medicine; Referring Provider Nurse Practitioner Adult Health; Visit Provider Nurse Practitioner Adult Health
DX: K76.0 Fatty (change of) liver, not elsewhere classified (principal); B19.20 Unspecified viral hepatitis C without hepatic coma
CPT/HCPCS: 76705; 76981

== ENCOUNTER → 2022-05-13 | Outpatient (CLI) | payer MEDICARE, MEDICAID, SELFPAY ==
--- NOTE | 2022-05-13 12:04 | CT_ITS ---
STUDY: CT ABDOMEN AND PELVIS WITH CONTRAST REASON FOR EXAM: Female, 51 years old. Periumbilical pain, LLQ tenderness -- oral and IV RADIATION DOSAGE (If Supplied By Facility): CTDIvol = ( 9.11 ) mGy, DLP = ( 623.83 ) mGy TECHNIQUE: Transaxial images were obtained from the dome of the diaphragm to the symphysis pubis with oral contrast. Oral and amp; IV Gastrografin and amp; 100mL Isovue-300 was administered. Sagittal and coronal images were reconstructed. Individualized dose optimization techniques were used for this CT. COMPARISON: Previous ultrasounds FINDINGS: The visualized lung bases are unremarkable. The visualized portions of the heart are within normal limits. Normal liver. Normal gallbladder and extrahepatic biliary system. Normal spleen. Normal pancreas. Normal bilateral adrenal glands. Normal right kidney. Normal left kidney. Normal visualized stomach. Nondistended fluid-filled small and large bowel loops in all 4 quadrants of the abdomen consistent with diffuse enteritis. No abscess or acute inflammation noted. There is non-visualization of the appendix. Normal abdominal aorta. Normal inferior vena cava. Normal retroperitoneum. Normal urinary bladder. Uterus is present, the endometrium cannot be adequately evaluated with CT. There is a 4.02 cm right ovarian cyst, given the patient''s age, further evaluation with a dedicated pelvic ultrasound is recommended for further evaluation and to ensure resolution. Normal abdominal wall. Normal osseous structures. CT/Abdomen/Pelvis WITH Contrast IMPRESSION: No suspicious solid organ abnormality Nondistended fluid-filled small and large bowel loops all 4 quadrants of the abdomen consistent with enteritis. No perforation or abscess noted 4.02 cm right ovarian cyst, dedicated pelvic ultrasound recommended for further evaluation, this should be followed to resolution Electronically Signed: Ryan Weldon MD at 8:00 EDT ,
== END | disposition home or self-care (01) ==
LOC: CT 12:02
PROVIDERS: PCP Family Medicine; Visit Provider Nurse Practitioner Adult Health
DX: R10.33 Periumbilical pain (principal)
CPT/HCPCS: 74177; Q9967

== ENCOUNTER → 2022-05-20 | Outpatient (CLI) | payer MEDICARE, MEDICAID, SELFPAY ==
[2022-05-20 18:10] LABS: Absolute Lymphocyte Count 2.81 X10^3/uL (0.83-4.51); Absolute Neutrophil Count 5.7 X10^3/uL (2.0-7.7); Basophil# 0.06 X10^3/uL; Basophil% 0.6 % (0-1); Eosinophil# 0.18 X10^3/uL; Eosinophils% 1.9 % (0-5); Hematocrit 40.7 % (37-47); Hemoglobin 13.2 g/dL (12.0-15.0); Lymphocyte # 2.81 X10^3/ul (0.83-4.51); Lymphocyte % 30.1 % (19-41); Mean Corp Hgb Conc 32.4 g/dL (32-36); Mean Corpuscular Hgb 31.6 pg (27.0-32.0); Mean Corpuscular Volume 97.4 fL (81-99); Mean Platelet Vol. 10.4 fl (6.2-12.0); Monocyte# 0.56 X10^3/uL; NRBC Flagged by Analyzer 0 % (0-5); Neutrophil % 61.1 % (47-70); POSITIVE COUNT YES; Platelet Count 389 K/mm3 (150-450); RBC Distribution Width CV 11.9 % (11.6-14.6); RBC Distribution Width SD 42.4 fl (35.1-43.9); Red Blood Count 4.18 M/mm3 (4.2-5.4); White Blood Count 9.3 K/mm3 (4.4-11.0)
[2022-05-20 19:08] LABS: Bacteria 0 SEEN /hpf (None Seen); Mucous, Urine 0 SEEN /hpf (<or=2+); Red Blood Cells-Urine 0 SEEN /hpf (0-5)
[2022-05-20 19:16] LABS: Color, Urine Yellow (Yellow); Glucose, Dipstick Normal (Normal); Ketone-Dipstick Negative (Negative); Leukocyte Esterase-Dipstick 25 /ul (Negative); Nitrite-Dipstick Negative (Negative); Occult Blood-Urine Negative /ul (Negative); Protein-Dipstick 15 mg/dl (Negative); Urine Bilirubin Dipstick Negative (Negative); Urine Clarity Clear (Clear); Urine Urobilinogen Normal (Normal)
[2022-05-20 19:34] LABS: Squamous Epithelial Cells - UA 0-5 SEEN /hpf (5-10); White Blood Cells 0-5 SEEN /hpf (0-5)
[2022-05-20 20:20] LABS: Vitamin D,25 Hydroxy 37.2 ng/mL
[2022-05-20 20:39] LABS: AST(SGOT) 40 U/L (15-37); Alanine Aminotransfer ALT/SGPT 61 U/L (13-56); Albumin, Serum 3.7 g/dL (3.2-5.0); Alkaline Phosphatase 94 U/L (45-117); Anion Gap 8 (5-15); BUN 16 mg/dL (7-18); BUN/Creat Ratio 21.2 RATIO (10-20); Calcium,Total 9.2 mg/dL (8.5-10.1); Chloride 105 mmol/L (98-107); Cholesterol 253 mg/dL (200); Creatinine, Serum 0.76 mg/dL (0.55-1.02); EST Glomerular Filtration Rate 86 mL/min (>60); Est Glom Filt Rate - Afr Amer 104 mL/min (>60); Globulin 3.6 g/dL (2.2-4.2); Glucose 102 mg/dL (74-106); High Density Lipoprotein 40 mg/dL; Potassium 3.9 mmol/L (3.5-5.1); Protein, Total 7.3 g/dL (6.4-8.2); Sodium Level 140 mmol/L (136-145); T4 Free Direct 0.77 ng/dL (0.76-1.46); Thyroid Stim Hormone (TSH) 3.75 uIU/mL (0.358-3.74); Triglycerides 704 mg/dL
[2022-05-20 20:47] LABS: Hemoglobin A1c 5.5 % (3.8-5.6)
[2022-05-21 11:45] LABS: Lipase 97 U/L (73-393)
[2022-05-22 22:07] LABS: HCV Quant. RNA PCR HCV Not Detected IU/mL (.)
== END | disposition home or self-care (01) ==
PROVIDERS: Nurse Practitioner Adult Health; PCP Family Medicine; Referring Provider Family Medicine; Visit Provider Family Medicine
DX: I10 Essential (primary) hypertension (principal); B18.2 Chronic viral hepatitis C; R73.09 Other abnormal glucose; K52.9 Noninfective gastroenteritis and colitis, unspecified; E03.8 Other specified hypothyroidism; E55.9 Vitamin D deficiency, unspecified
CPT/HCPCS: 36415; 80053; 80061; 81001; 82306; 83036; 83690; 84439; 84443; 85025; 87522

== ENCOUNTER → 2022-06-12 | Outpatient (CLI) | payer MEDICARE, MEDICAID, SELFPAY ==
--- NOTE | 2022-06-12 13:08 | US_ITS ---
STUDY: ULTRASOUND OF THE FEMALE PELVIS - COMPLETE REASON FOR EXAM: Female, 52 years old. ovarian cyst LMP: Unknown. TECHNIQUE: Transabdominal and Transvaginal TECHNICAL QUALITY: Adequate. COMPARISON: None. FINDINGS: The uterus is anteverted and is in a midline position. The uterus measures 5.1 x 3.3 x 2.6 cm. Normal uterine cervix. The endometrium measures 2.0 mm in thickness, and is hyperechoic. There is no demonstrated endometrial mass. There is no demonstrated myometrial mass, the myometrium is however heterogeneous.. I.U.D. - The patient does not have an I.U.D. The right ovary is indistinguishable from a complex fracture that appears to be an endometrioma. It measures 4.3 x 3.2 x 3.1 cm. The left ovary is visualized. The left ovary measures 1.4 x 1.1 x 0.9 cm. There is no left ovarian cyst or ovarian mass. There is no visualized left adnexal mass or complex lesion. There is normal arterial and normal venous vascularity. There is no fluid in the cul-de-sac. The pre void volume of the bladder was 196 ml. The post void volume of the bladder was ml. Polycystic ovary disease: No. US/Pelvic w/ Transvaginal IMPRESSION: The right ovary is indistinguishable from a homogeneous complex cystic structure likely representing an endometrioma. Short-term follow-up ultrasound recommended to assess stability or resolution. Heterogeneous uterus but no fibroid is identified. Endometrium is of normal thickness. Sonographically normal left ovary No free fluid Electronically Signed: Ryan Weldon MD at 15:08 EDT ,
== END | disposition home or self-care (01) ==
LOC: US 13:07
PROVIDERS: PCP Family Medicine; Referring Provider Family Medicine; Visit Provider Family Medicine
DX: N83.209 Unspecified ovarian cyst, unspecified side (principal)
CPT/HCPCS: 76830; 76856

== ENCOUNTER → 2022-08-04 | Outpatient (CLI) | payer MEDICARE, MEDICAID, SELFPAY ==
[2022-08-10 14:07] LABS: HPV APTIMA, High Risk Negative (Negative)
== END | disposition home or self-care (01) ==
LOC: LABSPEC 15:36
PROVIDERS: PCP Family Medicine; Referring Provider Nurse Practitioner Women's Health; Visit Provider Nurse Practitioner Women's Health
DX: Z12.4 Encounter for screening for malignant neoplasm of cervix (principal)
CPT/HCPCS: 87624; 88175; G0145

== ENCOUNTER → 2022-08-11 | Outpatient (CLI) | payer MEDICARE, MEDICAID, SELFPAY ==
--- NOTE | 2022-08-11 11:58 | BI_ITS ---
MAMMOGRAPHY - BILATERAL SCREENING REASON FOR EXAM: Female, 52 years old. Routine annual screening examination. PERTINENT HISTORY: Non-contributory. TECHNIQUE: Digital bilateral breast percy (3D mammographic acquisition) in the CC and MLO projections. 2-D mediolateral oblique (MLO) and craniocaudad (CC) views of both breasts were obtained. CAD: Full Field Digital Mammography with Computer Added Detection was performed. COMPARISON: None. Baseline examination. FINDINGS: Breast Composition: There are scattered areas of fibroglandular density. There are no dominant masses or suspicious calcifications. Breast asymmetry were more breast tissue is seen in the left breast as compared to the right side. Small benign-appearing bilateral axillary lymph nodes. No other significant abnormalities are identified. BI/SCRN MAMM (CAD)W/PERCY BILAT IMPRESSION: Negative screening mammogram. Yearly followup mammogram recommended. (A) ASSESSMENT CATEGORY: BIRADS Category 2: Benign. A letter regarding these results will be sent to the patient by the facility within 30 days. Approximately 10% of breast cancers are not detected by mammography. A normal mammogram should not delay biopsy of a clinically suspicious abnormality. [id number] Electronically Signed: Marcelo Montez MD at 14:21 EDT ,
--- NOTE | 2022-08-11 13:09 | US_ITS ---
INDICATION: right ovarian cyst EXAMINATION: Ultrasound US Pelvis Non OB Complete With Transvaginal Imaging TECHNIQUE: Transabdominal and endovaginal sonographic images of the pelvis. Grayscale and color flow Doppler evaluation of the adnexa. COMPARISON: 06/12/2022 ultrasound. FINDINGS: UTERUS: Anteverted. 5.4 x 2.9 x 3.1 cm. No evidence of a uterine mass or fibroid. Endometrium is unremarkable. Endometrial stripe thickness of 2 mm. RIGHT OVARY: 3.3 cm complex right ovarian cyst with homogeneous groundglass like internal echoes with no vascular flow identified by color Doppler, stable as compared to the prior ultrasound. LEFT OVARY: Unremarkable. FREE FLUID: No significant free fluid. US/Pelvic w/ Transvaginal IMPRESSION: 3.3 cm complex right ovarian cyst likely representing an endometrioma, unchanged as compared to 08/11/2022 ultrasound. Electronically Signed: Leeroy Cesar DO at 6:01 EDT ,
== END | disposition home or self-care (01) ==
LOC: OPBI 11:56
PROVIDERS: PCP Family Medicine; Referring Provider Nurse Practitioner Women's Health; Visit Provider Nurse Practitioner Women's Health
DX: Z12.31 Encounter for screening mammogram for malignant neoplasm of breast (principal); N80.129 Deep endometriosis of ovary, unspecified ovary
CPT/HCPCS: 76830; 76856; 77063; 77067

== ENCOUNTER → 2022-09-11 | Outpatient (CLI) | payer MEDICARE, MEDICAID, SELFPAY ==
[2022-09-11 14:14] LABS: Bacteria 0 SEEN /hpf (None Seen); Mucous, Urine 0 SEEN /hpf (<or=2+); Red Blood Cells-Urine 0 SEEN /hpf (0-5); Squamous Epithelial Cells - UA 0 SEEN /hpf (5-10); White Blood Cells 0 SEEN /hpf (0-5)
[2022-09-11 15:25] LABS: Absolute Lymphocyte Count 2.52 X10^3/uL (0.83-4.51); Basophil# 0.06 X10^3/uL; Basophil% 0.7 % (0-1); Eosinophil# 0.31 X10^3/uL; Eosinophils% 3.6 % (0-5); Hematocrit 41.4 % (37-47); Hemoglobin 13.5 g/dL (12.0-15.0); Lymphocyte # 2.52 X10^3/ul (0.83-4.51); Lymphocyte % 29.6 % (19-41); Mean Corp Hgb Conc 32.6 g/dL (32-36); Mean Corpuscular Hgb 31.3 pg (27.0-32.0); Mean Corpuscular Volume 96.1 fL (81-99); Mean Platelet Vol. 9.4 fl (6.2-12.0); Monocyte# 0.63 X10^3/uL; Monocyte% 7.4 % (0-10); NRBC Flagged by Analyzer 0 % (0-5); Neutrophil # 4.99 X10^3/uL (2.7-7.7); Neutrophil % 58.6 % (47-70); Platelet Count 465 K/mm3 (150-450); RBC Distribution Width CV 11.7 % (11.6-14.6); RBC Distribution Width SD 41.1 fl (35.1-43.9); Red Blood Count 4.31 M/mm3 (4.2-5.4); White Blood Count 8.5 K/mm3 (4.4-11.0)
[2022-09-11 15:29] LABS: Color, Urine Yellow (Yellow); Glucose, Dipstick Normal (Normal); Ketone-Dipstick Negative (Negative); Leukocyte Esterase-Dipstick 25 /ul (Negative); Nitrite-Dipstick Negative (Negative); Occult Blood-Urine Negative /ul (Negative); Protein-Dipstick Negative (Negative); Urine Bilirubin Dipstick Negative (Negative); Urine Clarity Clear (Clear); Urine Urobilinogen Normal (Normal)
[2022-09-11 16:08] LABS: Vitamin D,25 Hydroxy 56.4 ng/mL
[2022-09-11 16:14] LABS: AST(SGOT) 29 U/L (15-37); Alanine Aminotransfer ALT/SGPT 45 U/L (13-56); Albumin, Serum 3.8 g/dL (3.2-5.0); Alkaline Phosphatase 84 U/L (45-117); Anion Gap 8 (5-15); BUN 15 mg/dL (7-18); Calcium,Total 9.8 mg/dL (8.5-10.1); Chloride 105 mmol/L (98-107); Cholesterol 261 mg/dL (200); Creatinine, Serum 0.79 mg/dL (0.55-1.02); EST Glomerular Filtration Rate 82 mL/min (>60); Est Glom Filt Rate - Afr Amer 99 mL/min (>60); Globulin 3.8 g/dL (2.2-4.2); Glucose 87 mg/dL (74-106); High Density Lipoprotein 49 mg/dL; Potassium 3.2 mmol/L (3.5-5.1); Protein, Total 7.6 g/dL (6.4-8.2); Sodium Level 139 mmol/L (136-145); T4 Free Direct 0.78 ng/dL (0.76-1.46); Thyroid Stim Hormone (TSH) 2.66 uIU/mL (0.358-3.74); Triglycerides 482 mg/dL
[2022-09-11 17:31] LABS: Hemoglobin A1c 5.6 % (3.8-5.6)
== END | disposition home or self-care (01) ==
LOC: MFPLAB 14:09
PROVIDERS: PCP Family Medicine; Visit Provider Family Medicine
DX: I10 Essential (primary) hypertension (principal); R73.09 Other abnormal glucose; E03.8 Other specified hypothyroidism; E55.9 Vitamin D deficiency, unspecified
CPT/HCPCS: 36415; 80053; 80061; 81001; 82306; 83036; 84439; 84443; 85025

== ENCOUNTER → 2022-10-21 | Outpatient (CLI) | payer MEDICARE, MEDICAID, SELFPAY ==
--- NOTE | 2022-10-21 09:25 | RAD_ITS ---
STUDY: X-RAY CHEST REASON FOR EXAM: Female, 52 years old. Dyspnea. TECHNIQUE: Frontal and lateral views of the chest. COMPARISON: Chest dated January 2020. FINDINGS: The lungs are clear and expanded. There is no demonstrated pleural abnormality. Normal size heart. Normal mediastinum and sukhi. Normal visualized pulmonary arteries. Normal visualized aortic arch and descending thoracic aorta. Normal visualized thoracic spine. Normal visualized ribs, clavicles, and shoulders. No abnormality of the visualized soft tissue structures of the upper abdomen. RAD/Chest PA and Lateral IMPRESSION: No interval change. No active or acute cardiopulmonary disease. Electronically Signed: Tarun Hopson MD at 10:38 EDT ,
== END | disposition home or self-care (01) ==
LOC: RAD 09:19
PROVIDERS: PCP Family Medicine; Referring Provider Internal Medicine Pulmonary Disease; Visit Provider Internal Medicine Pulmonary Disease
DX: R06.00 Dyspnea, unspecified (principal); E84.9 Cystic fibrosis, unspecified
CPT/HCPCS: 71046

== ENCOUNTER → 2022-11-17 | Outpatient (CLI) | payer MEDICARE, MEDICAID, SELFPAY ==
--- NOTE | 2022-11-17 14:29 | US_ITS ---
INDICATION: follow-up ovary EXAMINATION: Ultrasound US Pelvis Non OB Complete With Transvaginal Imaging COMPARISON: Pelvic ultrasound 08/11/2022, 06/12/[address] 05/13/2022. FINDINGS: 84 grayscale ultrasound images of the pelvis obtained both transabdominally and transvaginally. In addition dedicated ovarian color Doppler and Doppler waveform interrogation was performed. UTERUS: Uterus measures : 5.2 x 2.9 x 2.7 cm. Endometrial thickness of 0.2 cm. Myometrium is unremarkable. ADNEXA: Flow is documented to bilateral ovaries by color Doppler as well as Doppler waveform. Large ovoid homogenous hypoattenuating right ovarian lesion measuring up to 4.2 cm, with increased through transmission, consistent with hemorrhagic ovarian cyst, to include endometrioma. Left ovary is unremarkable. Adequately distended urinary bladder is unremarkable, 87 cc volume. No significant free fluid. US/Pelvic (Non ) IMPRESSION: Large 4.2 cm right ovarian lesion most consistent with hemorrhagic ovarian cyst, to include endometrioma. Recommend follow-up pelvic MRI as this lesion has persisted from 6 months prior. Electronically Signed: Ernie Hamilton MD at 7:08 EDT ,
== END | disposition home or self-care (01) ==
LOC: US 14:28
PROVIDERS: PCP Family Medicine; Referring Provider Obstetrics & Gynecology; Visit Provider Obstetrics & Gynecology
DX: N80.129 Deep endometriosis of ovary, unspecified ovary (principal); R10.2 Pelvic and perineal pain
CPT/HCPCS: 76830; 76856

== ENCOUNTER 2022-11-25 11:26 | Day surgery (SDC) | payer MEDICARE, MEDICAID, SELFPAY ==
[2022-11-17 16:13] LABS: Hematocrit 39.8 % (37-47); Hemoglobin 12.6 g/dL (12.0-15.0); Mean Corp Hgb Conc 31.7 g/dL (32-36); Mean Corpuscular Hgb 30.7 pg (27.0-32.0); Mean Corpuscular Volume 97.1 fL (81-99); Mean Platelet Vol. 9.4 fl (6.2-12.0); Platelet Count 473 K/mm3 (150-450); RBC Distribution Width CV 11.9 % (11.6-14.6); RBC Distribution Width SD 42.2 fl (35.1-43.9)
[2022-11-17 16:39] LABS: Prothrombin Time (Protime)PT. 12.6 SECONDS (11.7-14.9)
[2022-11-17 16:40] LABS: AST(SGOT) 17 U/L (15-37); Alanine Aminotransfer ALT/SGPT 32 U/L (13-56); Albumin, Serum 3.9 g/dL (3.2-5.0); Alkaline Phosphatase 73 U/L (45-117); Anion Gap 6 (5-15); BUN 15 mg/dL (7-18); Bilirubin, Direct 0.14 mg/dL (0.00-0.30); Calcium,Total 9.9 mg/dL (8.5-10.1); Chloride 106 mmol/L (98-107); Creatinine, Serum 0.72 mg/dL (0.55-1.02); EST Glomerular Filtration Rate 91 mL/min (>60); Est Glom Filt Rate - Afr Amer 111 mL/min (>60); Globulin 3.5 g/dL (2.2-4.2); Glucose 96 mg/dL (74-106); Partial Thromboplast Time 29.6 Seconds (24.1-36.2); Potassium 3.4 mmol/L (3.5-5.1); Protein, Total 7.4 g/dL (6.4-8.2); Sodium Level 141 mmol/L (136-145)
--- NOTE | 2022-11-18 12:11 | EKG12_ITS ---
Test Reason : PREOP Blood Pressure : / mmHG Vent. Rate : 088 BPM Atrial Rate : 088 BPM P-R Int : 154 ms QRS Dur : 090 ms QT Int : 368 ms P-R-T Axes : 066 070 055 degrees QTc Int : 445 ms Normal sinus rhythm Normal ECG Confirmed by DANIEL DOYLE, JAKI ([id number]), film or videotape editor EMILIO THOMAS ([id number]) on 11/19/2022 1:51:20 PM Referred By: Irene Barnett Confirmed By:LESTER SANCHEZ MD
--- NOTE | 2022-11-25 | OV_PTH ---
PATIENT: JEREMY MONROE LOC: [facility] [place] U#:[id number] AGE/SX: 52/F ROOM: RE11/25/[address]: Dr. Irene Barnett DO : 1970 BED: DIS: 11/25/2022 SPEC #: [id number] RECD: 11/25/22 15:30 STATUS: NAYE BECKDavid #: [id number] MICAELA: 11/25/22 00:[address]: Irene Barnett DEPT: SURGICAL PATHOLOGY RECD BY: Feng Thomson ENTERED: 11/26/22 09:22 SP TYPE: OVARY OTHR DR: Dr. Hayder Tate MD Tissues: Right ovary Procedures: Surgery Specimen Level IV HEADER OPERATION: Diagnostic laparoscopy, right oophorectomy, right salpingectomy PRE-OP DIAGNOSIS: Endometrioma of ovary, pelvic pain TISSUE SUBMITTED: Right ovary and right fallopian tube MICROSCOPIC DIAGNOSIS Right ovary and right fallopian tube, salpingo-oophorectomy: Ovary - endometrioma. Fallopian tube - no pathologic diagnosis. RODNEY:beatrice 11/27/2022 MICROSCOPIC DESCRIPTION Slides are reviewed. GROSS DESCRIPTION Received in fixative is one container labeled with the patient's name and designated right ovary and right fallopian tube. The specimen consists of a fallopian tube and adjacent ovary. The fallopian tube measures 3.5 cm in length and 0.6 cm in diameter. The fimbrial end is identified. No tubo-ovarian adhesions are noted. Sections reveal unremarkable cut surfaces. The soft to cystic ovary measures 3.5 x 3.2 x 1.5 cm. A ruptured cyst is noted filled with blood clot. This is occupying almost the entire ovary and measures 3.0 cm in greatest dimension. It is filled with blood clot. Beef Tagger sections are submitted in four cassettes as follows: 1 - fallopian tube, 2-4 - ovary. / RODNEY:beatrice 11/26/2022 TC:5 CPT: 03246
[2022-11-25 12:04] VITALS: BP 119/80; PULSE 84; RESP 16; TEMP 36.5; O2SAT 97; BMI 28.8
--- NOTE | 2022-11-25 12:23 | PCM.HP.BLA ---
History and Physical Date of Admission: 11/25/22 Intake Vital Signs 08/04/2312:55 09/17/2310:20 09/17/2310:21 Height 5 ft 5 in 5 ft 5 in 5 ft 5 in Weight: 166 lb 8 oz BMI 27.7 BP 130/83 H Intake Visit Reasons: sugical consult Front Office Clerk Required: No Is patient in pain?: No Allergies ascorbic acid Allergy (Verified 09/17/22 11:20) Hivesbee venom protein (honey bee) Allergy (Verified 09/17/22 11:20) Anaphylaxismushroom Allergy (Verified 09/17/22 11:20) AnaphylaxisPenicillins Allergy (Verified 09/17/22 11:20) OtherSulfa (Sulfonamide Antibiotics) Allergy (Verified 09/17/22 11:20) Othergabapentin Adverse Reaction (Verified 09/17/22 11:20) Unknown Medications alprazolam 1 mg tablet 1 tablet PO BID PRN PRN Anxiety 10/15/17 [History Confirmed 09/17/22] multivitamin 1 tablet PO DAILY 06/14/20 [History Confirmed 09/17/22] vitamin B complex 1 tablet PO DAILY 06/14/20 [History Confirmed 09/17/22] ferrous sulfate 325 mg (65 mg iron) tablet 650 mg PO DAILY 06/15/20 [History Confirmed 09/17/22] amlodipine 5 mg tablet 5 mg PO DAILY 09/17/20 [History Confirmed 09/17/22] omeprazole 20 mg tablet,delayed release 20 mg PO BID 09/17/20 [History Confirmed 09/17/22] spironolactone 25 mg tablet 25 mg PO DAILY 09/17/20 [History Confirmed 09/17/22] cholecalciferol (vitamin D3) 25 mcg (1,000 unit) capsule 25 mcg PO DAILY 11/28/20 [History Confirmed 09/17/22] icosapent ethyl 1 gram capsule (Vascepa) 2 g PO BID 11/28/20 [History Confirmed 09/17/22] magnesium 250 mg tablet 250 mg PO DAILY 12/07/20 [History Confirmed 09/17/22] ursodiol 300 mg capsule 300 mg PO BID #180 caps 02/19/22 [Rx Confirmed 09/17/22] vitamin E (dl, acetate) 180 mg (400 unit) capsule 180 mg PO BID #180 caps 02/19/22 [Rx Confirmed 09/17/22] dwgpnn-bjlssycw-pwkhgwx 40,000-126,000-168,000 unit capsule, delay rel (Zenpep) See Rx Instructions .Route .COMPLEX #600 caps 07/15/22 [Rx Confirmed 09/17/22] Post menopausal: No Patient : No : No PFSH Medical History Alcohol use Anemia Back pain Bloating Cardiology follow-up encounter Chest pain CPAP (continuous positive airway pressure) dependence Diarrhea Dyspnea Essential hypertension Former smoker Gastric reflux GERD (gastroesophageal reflux disease) Hepatitis History of echocardiogram History of edema History of IBS History of pain when walking History of steroid therapy History of stress test History of ulceration Injury of head and neck Leg cramps Non-smoker OSCAR (obstructive sleep apnea) OSCAR on CPAP RLS (restless legs syndrome) Seizures Sleep apnea Smoker Wears dentures Wears glasses Surgical History History of surgery on upper extremity History of tonsillectomy and adenoidectomy Social History adopted: Yes Smoking Status: Former smoker alcohol intake: current details: occasional substance use type: does not use caffeine: No HPI sugical consult Details: JEREMY MONROE is a 52 year old who presents for discussion about a 4 cm ovarian hyperechoic cyst (likely endometrioma) and pelvic pain. She states that she was getting a work up for mucous filled stool and subsequently diagnosed with cystic fibrosis when she was also found to have a 5 cm endometrioma. The ultrasound was repeated (from may) recently and shows that the cyst is slightly smaller. She is not aware of a diagnosis of endometriosis and has never tried to have children. She is to a woman. She is not interested in conservative follow up and would like the ovary removed. ROS Const ROS Unobtainable: All systems reviewed & are unremarkable except as noted in H Resp Resp: Reports system reviewed and no additional complaints, except as documented; Denies cough GI GI: Reports as per HPI Psych Psych: Reports system reviewed and no additional complaints, except as documented Exam Const General: cooperative, healthy appearing, comfortable and no acute distress Resp Effort & Inspection: normal respiratory effort Skin General: no rashes or lesions noted Psych Appearance: grossly normal Speech and Movement: speech and movement normal Coding Level of Care Code Off vis,est,level 4 Diagnoses Endometrioma of ovary N80.129 Pelvic pain R10.2 Cystic fibrosis E84.9 Assessment and Plan Assessment and Plan (1) Endometrioma of ovary: Status: Acute Plan: patient was given option of conservative management since the cyst was getting smaller vs laparoscopic removal. Risks for surgery include breathing difficulty after extubation due to recent diagnosis of CF. She also could have advanced stage endometriosis and there could be bowel or bladder adhesions that could lead to injury. She would like to proceed with the oophorectomy will consult Pulm first and only if they believe she is low risks for complication, will proceed with her wishes. (2) Pelvic pain: Status: Acute (3) Cystic fibrosis: Status: Acute cleared for surgery per pulmonology I have discussed with the patient the risks, benefits, and alternatives of the procedure which include but are not limited to risks of anesthesia, bleeding, infection, possible damage to bowel, bladder, or surrounding vasculature which could lead to additional surgery to evaluate any complications. Patient agrees to procedure and wishes to proceed. ACOG/uptodate references given for additional information regarding procedure. plan for laparoscopic right oophorectomy today.
--- NOTE | 2022-11-25 12:24 | DCINST_ITS ---
Discharge Instructions Diet Discharge Diet: No restrictions Activity Discharge Activity: Return to Normal Activity, May Not Drive (for two weeks or while taking narcotic pain medications.), May Shower and May Take a Tub Bath (in 7 days) May resume sexual activity in: 1 week Weight Bearing Status: Full weight bearing Dressing / Incision Call your doctor if you observe: Using more than 1 pad per hour, Shortness of breath, Chest pain and Uncontrolled pain Suture Line Care: Avoid Pulling/Pushing and Avoid Pinching/Bending Remove Dressing in: 1 week (if present) Cleanse incision/area with: Soap & Water and Keep Dressing Clean & Dry Follow Up Care Please Follow Up With: Irene Barnett DO When: Call to make an appointment with your doctor for a follow up incision check in 1-2 weeks. Test Results: Test results from this visit will be discussed in further detail at your follow- up appointment, if applicable. Discharge Plan Admission Primary Reason for Your Visit: status post laparoscopy Attending Provider: Irene Barnett Primary Care Provider: Hayder Tate Discharge Orders/Prescriptions Prescriptions: New ibuprofen 800 mg tablet 800 mg PO Q8H PRN (Reason: pain) Qty: 30 0RF oxycodone-acetaminophen [Percocet] 5-325 mg tablet 1 tab PO Q4H PRN (Reason: pain) 7 Days Qty: 12 0RF Rx Instructions: 1-2 tabs q 4 hrs as needed for pain Continued amlodipine 5 mg tablet 5 mg PO DAILY spironolactone 25 mg tablet 25 mg PO DAILY cholecalciferol (vitamin D3) 25 mcg (1,000 unit) capsule 25 mcg PO DAILY icosapent ethyl [Vascepa] 1 gram capsule 2 g PO BID alprazolam 1 mg tablet 1 tablet PO DAILY PRN (Reason: Anxiety) Patient Comments: Take 1 tablet twice a day as needed fenofibrate 160 mg tablet 160 mg PO QHS Patient Comments: TAKE 1 TABLET BY MOUTH ONCE DAILY vitamin A 2,400 mcg capsule 2,400 mcg PO DAILY sodium chloride 7 % solution for nebulization 1 inh INHALATION Q12H Patient Comments: USE 1 VIAL IN NEBULIZER TWICE DAILY MK-7 90 mcg capsule 90 mcg PO DAILY Estroven PMS 1 tab PO DAILY black cohosh 40 mg tablet 40 mg PO DAILY multivitamin Tablet 1 tablet PO DAILY ferrous sulfate 325 mg (65 mg iron) tablet 650 mg PO BID omeprazole 20 mg tablet,delayed release (DR/EC) 20 mg PO BID vitamin E (dl, acetate) 180 mg (400 unit) capsule 180 mg PO BID Qty: 180 3RF ursodiol 300 mg capsule 300 mg PO BID Qty: 180 3RF Zenpep 40,000-126,000- 168,000 unit capsule,delayed release(DR/EC) See Rx Instructions .ROUTE .COMPLEX Qty: 600 2RF Rx Instructions: take 2-3 capsules by mouth with snacks, take 4-6 capsules with meals Other Ambulatory Orders: 12 Lead EKG (Routine) Timeframe: 20221118 Location: None Selected Ordered By: Dr. Gavin Owens Referrals / Follow Up: Hayder Tate MD [Primary Care Provider] - Disposition Disposition (needs filled in before D/C Order can be placed): Home, Self Care
[2022-11-25 12:47] LABS: Internal QC Validated? YES +Cl - CLEAR BKGD; Pregnancy, Urine Negative Negative; Record Kit Lot#,Urine Preg HCG0000667200
[2022-11-25] MEDS: Lactated Ringers 1,000 ML 15 ML IV (12:55)
[2022-11-25] MEDS: Bupivacaine 0.25% 30 ML Vial (14:08)
--- NOTE | 2022-11-25 14:29 | PCM.OPRPT ---
Problems Associated Problem List Diagnoses (1) Ovarian cyst, right: (2) Endometrioma of ovary: Report of Operation Date of Procedure: 11/25/22 Pre-Operative Diagnosis: right ovarian endometrioma Post-Operative Diagnosis: right ovarian endometrioma Surgery/Procedure Performed:: laparoscopic right salpingo-oophorectomy Description of Surgical Findings:: 5 cm right ovarian cyst adherent to the right side wall and fallopian tube Surgeon: Irene Barnett oxygen equipment aide: Marissa Ann Type of Anesthesia: General Estimated Blood Loss (mL): 20cc Description of Procedure: Patient was taken in the operating room and was placed under general anesthesia was prepped and draped in normal sterile fashion in the dorsal lithotomy position. Bladder was drained of clear urine and SCDs were on preoperatively. A sponge stick was insterted into the vagina. Attention was then paid to the abdominal portion of the procedure and the umbilicus was elevated with towel clamps and injected with Marcaine and after a 5 mm incision was made and the 5 mm trocar was entered into the abdomen under direct visualization with the laparoscope. The abdomen was insufflated with CO2 gas and a 5 mm optical trocar was placed under direct visualization. A left lower quadrant 5 mm port and a mini grasper placed suprapubically were placed under direct visualization. Uterus was well visualized and bilateral fallopian tubes identified and found to be normal. The left ovary was small and normal appearing. The right ovary was enlarged and the fallopian tube was noted to be adherent to the posterior aspect of the ovary and both the ovary and fallopian tube were adherent to the right pelvic side wall. While using the mini-grasper to elevate the ovary, the cyst spontaneously ruptured and a large amount of chocolate appearing material spilled from the ovary. Suction irrigation was performed. The ligasure device was then used to cauterize and cut across the IP and ovarian ligmaments. A 5 mm endocatch bag was placed in the abdomen and the ovary and fallopian tube were dropped into the bag and brought to the level of the trocar opening. The underlying fascia was spread using a [place] forceps device and the ovary and fallopian tube in the bag were delivered through the abdomen. Excellent hemostasis was noted. Liver and upper abdomen were visualized notably within normal limits and no other gross abnormalities were seen in the abdomen. All instruments removed from the abdomen after gas was desufflated. Port sites were closed with 3-0 Monocryl Steri's and op sites were applied. All instruments removed from the vagina and patient was awoken and taken recovery in stable condition. Complications none Admit VTE Documentation VTE Present on Admission: No VTE Mechan Device Prophylaxis: SCD's VTE Pharm Prophylaxis ordered?: No Multi Select Codes Urinary/Genital Urinary/Genital CPT Codes: 61450 Laproscopic BS/O
[2022-11-25 14:37] VITALS: BP 107/92; BP 119/80; PULSE 98; RESP 16; TEMP 36.6; O2SAT 92
[2022-11-25 14:45] VITALS: BP 119/80; BP 127/82; PULSE 98; RESP 16; O2SAT 92
[2022-11-25 15:00] VITALS: BP 119/80; BP 129/82; PULSE 89; RESP 16; O2SAT 94
[2022-11-25 15:02] VITALS: BP 119/80; BP 126/75; PULSE 93; RESP 16; TEMP 36.6; O2SAT 96
[2022-11-25 15:36] VITALS: BP 119/80
== END 2022-11-25 16:47 | disposition home or self-care (01) ==
LOC: SDC 11:27 → AC 11:28
PROVIDERS: Anesthesiology; PCP Family Medicine; Referring Provider Obstetrics & Gynecology; Visit Provider Obstetrics & Gynecology
PROC: (CPT 49320; principal; 2022-11-25 13:00)
DX: N80.121 Deep endometriosis of right ovary (principal); E84.9 Cystic fibrosis, unspecified; B18.2 Chronic viral hepatitis C; I10 Essential (primary) hypertension; D64.9 Anemia, unspecified; F41.9 Anxiety disorder, unspecified; K76.0 Fatty (change of) liver, not elsewhere classified; K21.9 Gastro-esophageal reflux disease without esophagitis; E78.1 Pure hyperglyceridemia; K58.9 Irritable bowel syndrome, unspecified; E78.00 Pure hypercholesterolemia, unspecified; G25.81 Restless legs syndrome; G47.33 Obstructive sleep apnea (adult) (pediatric); Z79.899 Other long term (current) drug therapy; Z87.891 Personal history of nicotine dependence; Z99.89 Dependence on other enabling machines and devices
CPT/HCPCS: 58661; 00840; 36415; 80048; 80076; 81025; 85027; 85610; 85730; 86850; 86900; 86901; 88305; 93005; J7120; J2405

== ENCOUNTER → 2023-05-15 | Outpatient (CLI) | payer MEDICARE, MEDICAID, SELFPAY ==
[2023-05-15 17:39] LABS: Absolute Lymphocyte Count 2.34 X10^3/uL (0.83-4.51); Absolute Neutrophil Count 7.3 X10^3/uL (2.0-7.7); Basophil# 0.05 X10^3/uL; Basophil% 0.5 % (0-1); Eosinophil# 0.24 X10^3/uL; Eosinophils% 2.3 % (0-5); Hematocrit 40.4 % (37-47); Hemoglobin 13.5 g/dL (12.0-15.0); Lymphocyte # 2.34 X10^3/ul (0.83-4.51); Lymphocyte % 22.3 % (19-41); Mean Corp Hgb Conc 33.4 g/dL (32-36); Mean Corpuscular Hgb 31.3 pg (27.0-32.0); Mean Corpuscular Volume 93.5 fL (81-99); Mean Platelet Vol. 9.5 fl (6.2-12.0); Monocyte# 0.56 X10^3/uL; Monocyte% 5.3 % (0-10); NRBC Flagged by Analyzer 0 % (0-5); Neutrophil % 69.4 % (47-70); Platelet Count 492 K/mm3 (150-450); RBC Distribution Width CV 11.6 % (11.6-14.6); RBC Distribution Width SD 39.8 fl (35.1-43.9); Red Blood Count 4.32 M/mm3 (4.2-5.4); White Blood Count 10.5 K/mm3 (4.4-11.0)
[2023-05-15 17:58] LABS: Vitamin D,25 Hydroxy 33.4 ng/mL
[2023-05-15 18:04] LABS: Hemoglobin A1c 5.3 % (3.8-5.6)
[2023-05-15 18:17] LABS: ALB/GLOB Ratio 1.2 RATIO (0.9-2.4); AST(SGOT) 20 U/L (15-37); Alanine Aminotransfer ALT/SGPT 27 U/L (13-56); Albumin, Serum 4.2 g/dL (3.2-5.0); Alkaline Phosphatase 65 U/L (45-117); Anion Gap 8 (5-15); BUN 20 mg/dL (7-18); BUN/Creat Ratio 26.3 RATIO (10-20); Calcium,Total 9.8 mg/dL (8.5-10.1); Chloride 109 mmol/L (98-107); Cholesterol 261 mg/dL (200); Creatinine, Serum 0.76 mg/dL (0.55-1.02); EST Glomerular Filtration Rate 85 mL/min (>60); Est Glom Filt Rate - Afr Amer 103 mL/min (>60); Globulin 3.6 g/dL (2.2-4.2); Glucose 93 mg/dL (74-106); High Density Lipoprotein 49 mg/dL; Potassium 3.5 mmol/L (3.5-5.1); Protein, Total 7.8 g/dL (6.4-8.2); Sodium Level 140 mmol/L (136-145); T4 Free Direct 0.79 ng/dL (0.76-1.46); Thyroid Stim Hormone (TSH) 2.06 uIU/mL (0.358-3.74); Triglycerides 471 mg/dL
== END | disposition home or self-care (01) ==
LOC: MTLAB 14:16
PROVIDERS: PCP Family Medicine; Referring Provider Family Medicine; Visit Provider Family Medicine
DX: E03.8 Other specified hypothyroidism (principal); I10 Essential (primary) hypertension; R73.09 Other abnormal glucose; E55.9 Vitamin D deficiency, unspecified
CPT/HCPCS: 36415; 80053; 80061; 82306; 83036; 84439; 84443; 85025

== ENCOUNTER → 2023-06-09 | Outpatient (CLI) | payer MEDICARE, MEDICAID, SELFPAY ==
--- NOTE | 2023-06-09 10:22 | MRI_ITS ---
STUDY: MR CHOLANGIOPANCREATOGRAPHY (MRCP) REASON FOR EXAM: Female, 53 years old. EPI- n/v/d TECHNIQUE: Standard MRCP technique was utilized. COMPARISON: CT 05/13/2022 FINDINGS: Gall Bladder: Normal with no distention or demonstrated fixed intraluminal filling defect. Cystic duct: Normal with no demonstrated fixed filling defect. Intrahepatic ducts: Normal visualized intrahepatic ducts with no demonstrated fixed filling defect, dilation or stricture. Common hepatic duct: Normal with no demonstrated fixed filling defect, dilation or stricture. Common bile duct: Normal with no demonstrated fixed filling defect, dilation or stricture. Pancreatic duct: Normal with no demonstrated fixed filling defect, dilation or stricture. However, the pancreatic duct drains through the minor papilla suggestive of pancreas divisumon or possibly reverse pancreas divisum.. MRI/MRCP Abdomen without Contrast IMPRESSION: 1. No biliary ductal dilatation or stricture. 2. Suspect pancreas divisum or reverse pancreas divisum. Electronically Signed: Praveen Murillo MD at 20:14 EDT ,
== END | disposition home or self-care (01) ==
LOC: MRI 10:19
PROVIDERS: PCP Family Medicine; Referring Provider Internal Medicine Gastroenterology; Visit Provider Internal Medicine Gastroenterology
DX: K86.81 Exocrine pancreatic insufficiency (principal)
CPT/HCPCS: 74181

== ENCOUNTER → 2023-12-15 | Outpatient (CLI) | payer MEDICARE, MEDICAID, SELFPAY ==
[2023-12-15 15:42] LABS: Absolute Lymphocyte Count 2.07 X10^3/uL (0.83-4.51); Absolute Neutrophil Count 4.4 X10^3/uL (2.0-7.7); Basophil# 0.06 X10^3/uL; Basophil% 0.8 % (0-1); Eosinophil# 0.26 X10^3/uL; Eosinophils% 3.5 % (0-5); Hematocrit 39.7 % (37-47); Hemoglobin 12.9 g/dL (12.0-15.0); Lymphocyte # 2.07 X10^3/ul (0.83-4.51); Lymphocyte % 27.9 % (19-41); Mean Corp Hgb Conc 32.5 g/dL (32-36); Mean Corpuscular Hgb 31.9 pg (27.0-32.0); Mean Platelet Vol. 9.3 fl (6.2-12.0); Monocyte# 0.57 X10^3/uL; Monocyte% 7.7 % (0-10); NRBC Flagged by Analyzer 0 % (0-5); Neutrophil # 4.44 X10^3/uL (2.7-7.7); Neutrophil % 59.8 % (47-70); Platelet Count 466 K/mm3 (150-450); RBC Distribution Width CV 11.9 % (11.6-14.6); RBC Distribution Width SD 43.7 fl (35.1-43.9); Red Blood Count 4.05 M/mm3 (4.2-5.4); White Blood Count 7.4 K/mm3 (4.4-11.0)
[2023-12-15 16:00] LABS: Hemoglobin A1c 5.4 % (3.8-5.6)
[2023-12-15 16:03] LABS: ALB/GLOB Ratio 1.1 RATIO (0.9-2.4); AST(SGOT) 26 U/L (15-37); Alanine Aminotransfer ALT/SGPT 74 U/L (13-56); Albumin, Serum 4.1 g/dL (3.2-5.0); Alkaline Phosphatase 69 U/L (45-117); Anion Gap 6 (5-15); BUN 15 mg/dL (7-18); BUN/Creat Ratio 18.6 RATIO (10-20); Calcium,Total 10.2 mg/dL (8.5-10.1); Chloride 105 mmol/L (98-107); Cholesterol 302 mg/dL (200); Creatinine, Serum 0.81 mg/dL (0.55-1.02); EST Glomerular Filtration Rate 79 mL/min (>60); Est Glom Filt Rate - Afr Amer 96 mL/min (>60); Globulin 3.7 g/dL (2.2-4.2); Glucose 91 mg/dL (74-106); High Density Lipoprotein 68 mg/dL; Magnesium 2.3 mg/dL (1.6-2.6); Potassium 3.7 mmol/L (3.5-5.1); Protein, Total 7.8 g/dL (6.4-8.2); Sodium Level 136 mmol/L (136-145); T4 Free Direct 0.86 ng/dL (0.76-1.46); Triglycerides 166 mg/dL; Very Low Density Lipoprotein 33 mg/dL (5-40)
== END | disposition home or self-care (01) ==
LOC: MFPLAB 11:29
PROVIDERS: PCP Family Medicine; Visit Provider Family Medicine
DX: I10 Essential (primary) hypertension (principal); E55.9 Vitamin D deficiency, unspecified; E03.8 Other specified hypothyroidism; R73.09 Other abnormal glucose
CPT/HCPCS: 36415; 80053; 80061; 82306; 83036; 83735; 84439; 84443; 85025

== ENCOUNTER → 2023-12-15 | Outpatient (CLI) | payer MEDICARE, MEDICAID, SELFPAY ==
--- NOTE | 2023-12-15 11:45 | RAD_ITS ---
EXAM: XR ABDOMEN, 2 VIEWS AND XR CHEST, 1 VIEW CLINICAL INDICATION: constipation TECHNIQUE: Frontal view of the chest, frontal view of the abdomen/pelvis and upright or decubitus view of the abdomen. COMPARISON: CT abdomen, 05/13/2022 FINDINGS: CHEST: LUNGS AND PLEURAL SPACES: Linear basilar pulmonary opacities bilaterally may be scarring or subsegmental atelectasis. No pneumothorax. No effusion. HEART: No significant abnormality. Cardiac silhouette not enlarged. MEDIASTINUM: Central airways and mediastinal contour are unremarkable. ABDOMEN: INTRAPERITONEAL SPACE: No free air. GASTROINTESTINAL TRACT: Nonobstructive bowel gas pattern. Moderate colonic stool. ORGANS: Normal as visualized. No organomegaly. No abnormal calcifications. TUBES, LINES AND DEVICES: None. BONES/JOINTS: Degenerative changes throughout the visualized axial and appendicular skeletal structures. SOFT TISSUES: No significant findings. VASCULATURE: Atherosclerosis. RAD/Acute Abdomen Inc Chest IMPRESSION: 1. Linear basilar pulmonary opacities bilaterally may be scarring or subsegmental atelectasis. Otherwise, no acute pathology in the chest. 2. Nonobstructive bowel gas pattern. Moderate colonic stool retention. Electronically Signed: Ky Monet DO at 20:35 EDT ,
== END | disposition home or self-care (01) ==
LOC: MTRAD 11:44
PROVIDERS: PCP Family Medicine; Referring Provider Family Medicine; Visit Provider Family Medicine
DX: K59.00 Constipation, unspecified (principal)
CPT/HCPCS: 74022

== ENCOUNTER → 2024-04-07 | Outpatient (CLI) | payer MEDICARE, MEDICAID, SELFPAY ==
[2024-04-07 11:28] LABS: Bacteria 0 SEEN /hpf (None Seen); Red Blood Cells-Urine 0 SEEN /hpf (0-5)
[2024-04-07 12:22] LABS: Color, Urine Yellow (Yellow); Glucose, Dipstick Normal (Normal); Ketone-Dipstick Negative (Negative); Leukocyte Esterase-Dipstick 25 /ul (Negative); Nitrite-Dipstick Negative (Negative); Occult Blood-Urine Negative /ul (Negative); Protein-Dipstick Negative (Negative); Specific Gravity, Urine 1.025 (1.002-1.030); Urine Bilirubin Dipstick Negative (Negative); Urine Clarity Clear (Clear); Urine Urobilinogen Normal (Normal)
[2024-04-07 12:31] LABS: Mucous, Urine 2+ /hpf (<or=2+); Squamous Epithelial Cells - UA 0-5 SEEN /hpf (5-10); White Blood Cells 0-5 SEEN /hpf (0-5)
[2024-04-07 12:32] LABS: Hyaline Cast 0-5 SEEN /lpf (0-5)
[2024-04-07 15:30] LABS: Absolute Lymphocyte Count 2.17 X10^3/uL (0.83-4.51); Absolute Neutrophil Count 5.7 X10^3/uL (2.0-7.7); Basophil# 0.07 X10^3/uL; Basophil% 0.8 % (0-1); Eosinophil# 0.16 X10^3/uL; Eosinophils% 1.8 % (0-5); Hematocrit 40.2 % (37-47); Hemoglobin 12.8 g/dL (12.0-15.0); Lymphocyte # 2.17 X10^3/ul (0.83-4.51); Lymphocyte % 24.7 % (19-41); Mean Corp Hgb Conc 31.8 g/dL (32-36); Mean Corpuscular Hgb 30.7 pg (27.0-32.0); Mean Corpuscular Volume 96.4 fL (81-99); Mean Platelet Vol. 9.4 fl (6.2-12.0); Monocyte# 0.65 X10^3/uL; Monocyte% 7.4 % (0-10); NRBC Flagged by Analyzer 0 % (0-5); Neutrophil # 5.73 X10^3/uL (2.7-7.7); Neutrophil % 65.1 % (47-70); Platelet Count 512 K/mm3 (150-450); RBC Distribution Width CV 12.4 % (11.6-14.6); RBC Distribution Width SD 43.7 fl (35.1-43.9); Red Blood Count 4.17 M/mm3 (4.2-5.4); White Blood Count 8.8 K/mm3 (4.4-11.0)
[2024-04-07 15:39] LABS: Vitamin D,25 Hydroxy 29.8 ng/mL
[2024-04-07 16:05] LABS: ALB/GLOB Ratio 1.2 RATIO (0.9-2.4); AST(SGOT) 29 U/L (15-37); Alanine Aminotransfer ALT/SGPT 52 U/L (13-56); Albumin, Serum 4.4 g/dL (3.2-5.0); Alkaline Phosphatase 63 U/L (45-117); Anion Gap 8 (5-15); BUN 19 mg/dL (7-18); BUN/Creat Ratio 23.3 RATIO (10-20); Calcium,Total 10.2 mg/dL (8.5-10.1); Chloride 107 mmol/L (98-107); Cholesterol 217 mg/dL (200); Creatinine, Serum 0.82 mg/dL (0.55-1.02); EST Glomerular Filtration Rate 78 mL/min (>60); Est Glom Filt Rate - Afr Amer 94 mL/min (>60); Globulin 3.8 g/dL (2.2-4.2); Glucose 92 mg/dL (74-106); High Density Lipoprotein 68 mg/dL; Potassium 3.9 mmol/L (3.5-5.1); Protein, Total 8.2 g/dL (6.4-8.2); Sodium Level 139 mmol/L (136-145); T4 Free Direct 0.95 ng/dL (0.76-1.46); Triglycerides 148 mg/dL; Very Low Density Lipoprotein 30 mg/dL (5-40)
[2024-04-07 16:44] LABS: Hemoglobin A1c 4.3 % (3.8-5.6)
[2024-04-08 11:28] LABS: PTHIN 17.2 pg/mL (18.4-80.1)
== END | disposition home or self-care (01) ==
LOC: MFPLAB 11:08
PROVIDERS: PCP Family Medicine; Referring Provider Family Medicine; Visit Provider Family Medicine
DX: I10 Essential (primary) hypertension (principal); B18.2 Chronic viral hepatitis C; E78.1 Pure hyperglyceridemia; E03.8 Other specified hypothyroidism; R73.09 Other abnormal glucose; E55.9 Vitamin D deficiency, unspecified
CPT/HCPCS: 36415; 80053; 80061; 81001; 82306; 83036; 83970; 84439; 84443; 85025; 87522